=== PATIENT | female | born 1980 | race Two or more races ===

== ENCOUNTER 2020-02-19 15:36 | Outpatient (REF) | payer OTHER, SELFPAY | END 2020-02-19 15:37 | disposition home or self-care (01) | LOC: HO.LAB 15:36 | PROVIDERS: PCP Internal Medicine; Visit Provider Internal Medicine | DX: Z20.828 Contact with and (suspected) exposure to other viral communicable diseases (principal) | CPT/HCPCS: C9803; U0003 ==

== ENCOUNTER 2020-03-04 10:10 | Outpatient (REF) | payer OTHER, SELFPAY | END 2020-03-04 10:11 | disposition home or self-care (01) | LOC: HO.LAB 10:10 | PROVIDERS: Visit Provider Internal Medicine | DX: Z20.828 Contact with and (suspected) exposure to other viral communicable diseases (principal) | CPT/HCPCS: C9803; U0003 ==

== ENCOUNTER 2020-05-21 03:24 | Emergency (ER) | payer OTHER, SELFPAY ==
[2020-05-21 04:34] VITALS: BP 119/78; PULSE 69; RESP 18; TEMP 37.1; O2SAT 100; BMI 36.8
--- NOTE | 2020-05-21 05:11 | ED.DENTAL ---
HPI - Dental/Oral General Chief complaint: Dental/Oral Stated complaint: Dental Pain Time Seen by Provider: 05/21/20 05:07 Source: patient Mode of arrival: ambulatory Limitations: no limitations History of Present Illness HPI Narrative: Patient comes to emergency room complaining of dental pain in the right maxillary side. Patient states she has been prescribed amoxicillin and ibuprofen without relief. Patient states she has an appointment coming up with her dentist, however she could not tolerate the pain. Patient states her face looks more swollen now. Patient denies fever or chills MD Complaint: tooth pain Teeth map: 1. Onset (ago): day(s) Related Data Previous Rx's Medication Instructions Recorded ketorolac 10 mg PO TID PRN 5 Days tab 05/21/20 ketorolac 10 mg PO TID PRN 5 Days tab 05/21/20 Allergies Allergy/AdvReac Type Severity Reaction Status Date / Time Latex, Natural Rubber Allergy Unknown Verified 05/21/20 05:44 Review of Systems Review of Systems: Constitutional : No Weight loss, No Fever, No Chills, No Night Sweats, No Fatigue, No Malaise ENT/Mouth : No Hearing loss, No Ear Pain, No Nasal Congestion, No Sinus Pain, No Hoarseness, No sore throat, No Rhinorrhea, No Swallowing Difficulty, complaining of right maxillary pain and right facial swelling Eyes: No Eye Pain, No Swelling, No Redness, No Foreign Body, No Discharge, No Vision Changes Cardiovascular : No Chest Pain, No SOB, No Dyspnea on Exertion, No Orthopnea, No Edema, No Palpitations Respiratory : No Cough, No Sputum, No Wheezing, No Smoke Exposure, No Dyspnea Gastrointestinal : No Nausea, No Vomiting, No Diarrhea, No Constipation, No abdominal Pain, No Hematochezia, No Melena Genitourinary : no irregular bleeding, No Dysuria, No Urinary Frequency, No Hematuria, No Urinary Incontinence, No Urgency, No Flank Pain, No Urinary Flow Changes, No Hesitancy Musculoskeletal : No joint pain, No Myalgias, No Joint Swelling Skin : No Skin Lesions, No rash Neuro : No Weakness, No Numbness, No Paresthesias, No Loss of Consciousness, No Dizziness, No Headache Psych : No Anxiety/Panic, No Depression, No SI/HI/AH/VH, No Social Issues, Heme/Lymph: No Bruising, No Bleeding,No Lymphadenopathy Endocrine : No Polyuria, No Polydipsia, No Temperature Intolerance [facility] Past Medical History Medical History Asthma Social History Social History Advance Directives: No Physical Exam Vital Signs: Vital Signs: Last Vital Signs Temp 98.8 F 05/21/20 04:34 Pulse 69 05/21/20 04:34 Resp 18 05/21/20 04:34 BP 119/78 05/21/20 04:34 Pulse Ox 100 05/21/20 04:34 Body Mass Index 36.8 Appearance: Alert. Oriented X3. No acute distress. Eyes: Pupils equal, round and reactive to light. ENT: Pharynx normal. Patient has a an abscess in the anterior aspect of the 27th and 28th teeth, tender to palpation Neck: Normal inspection. Neck supple. No lymph nodes noted. No crepitus CVS: Normal heart rate and rhythm. Pulses normal. Normal S1 and S2 Respiratory: No respiratory distress. Breath sounds normal. No Wheezing. No rales Abdomen: Soft and nontender. No rigidity. No distention. good BS x4 Skin: Skin warm and dry. Normal skin color. Normal skin turgor. Extremities: No lower extremity edema. No lower extremity edema. No Lacerations. No Rash Neuro: Oriented X 3. No motor deficit. No sensory deficit. Moving all extermities. No slurred speech. Course Course Course Narrative: Patient states that she is taking amoxicillin 3 times a day from a previous prescription that she has, has been taking 200 mg of ibuprofen every 8-12 hours. Patient received a dental block, bupivacaine 3.6 mL were used. Patient had relief. Patient has an appointment with her dentist in 2 days. Patient received 1 dose of IM Toradol. Patient asked to discontinue taking ibuprofen. Discharge Plan Discharge Clinical Impression: Toothache, Dental abscess Patient Disposition: Home, Self-Care Instructions: Toothache (ED) Additional Instructions: Do not use ibuprofen when you are taking ketorolac. If you need more pain relief, please use Tylenol only. Please follow-up with your dentist. Please follow-up with your primary care physician tomorrow. If you have any worsening or new symptoms, please return to the emergency room or call 911 Prescriptions: New ketorolac 10 mg tablet 10 mg PO TID PRN (Reason: pain) 5 Days RF: 0 ketorolac 10 mg tablet 10 mg PO TID PRN (Reason: pain) 5 Days RF: 9
[2020-05-21] MEDS: Ketorolac Tromethamine 60 MG/2 ML VIAL IM (06:04)
== END 2020-05-21 06:15 | disposition home or self-care (01) ==
PROVIDERS: Emergency Provider Emergency Medicine; PCP Internal Medicine
DX: K08.89 Other specified disorders of teeth and supporting structures (principal); K04.7 Periapical abscess without sinus; J45.909 Unspecified asthma, uncomplicated
CPT/HCPCS: 64400; 96372; 99283; 99284; J1885

== ENCOUNTER 2022-08-31 09:45 | Outpatient (AMB) | payer OTHER, SELFPAY ==
--- NOTE | 2022-08-31 10:35 | MHC.PC.OV ---
Vital Signs 08/31/22 10:44 Height 5 ft 4 in Weight 248 lb BMI 42.6 BP 112/80 Blood Pressure Location Lt brachial Position Sitting Pulse 76 Pulse Source Pulse Oximeter Pulse Oximetry (%) 95 Oxygen Delivery Method Room Air Intake Visit Reasons: New patient-Requesting physical Intake Note: Pt is here today as a transfer Patient from Dr. Ellis/[facility] Allergies Latex, Natural Rubber Allergy (Verified 05/19/23 22:58) Unknown Medication List - Last Reconciled 08/31/22 by Dorinda Beauchamp MD No Known Home Meds Tobacco use date assessed: 08/31/22 HPI New patient-Requesting physical HPI Details 41-year-old lady here today to establish care with a new PCP, transfer from Dr. Ellis, and for physical exam. She has history of chronic gastroesophageal reflux disease, hypertension, history of vitamin-D deficiency, B12 deficiency, history of bariatric surgery in 2016, and bronchial asthma. She however is not on any medications at present time. Has been having irregular menstrual cycle, last menstrual period was in January 2022. Review of last blood work in 2017 showed presence of elevated bilirubin and low vitamin-D level. [facility] Medical History Heartburn Irregular menstrual cycle Annual visit for general adult medical examination with abnormal findings Leukopenia Total bilirubin, elevated Vitamin D deficiency Asthma Surgical History H/O gastric sleeve Family History Father Diabetes mellitus Essential hypertension Maternal Grandmother Essential hypertension CVA (cerebral vascular accident) Maternal Grandfather Essential hypertension Cardiovascular disease Maternal Uncle Diabetes mellitus Social History Housing: Apartment Patient Tobacco Use Status: Former Tobacco user e-Cigarette/Vaping Use: Never Used service: No Current occupational status: employed Cognitive needs: No Hearing needs: No Vision needs: No Questionnaire PHQ-9 Over the last 2 weeks, how often have you been bothered by any of the following problems? 1. Little interest or pleasure in doing things: not at all 2. Feeling down, depressed, or hopeless: not at all 3. Trouble falling or staying asleep, or sleeping too much: several days 4. Feeling tired or having little energy: several days 5. Poor appetite or overeating: not at all 6. Feeling bad about yourself - or that you are a failure or have let yourself or your family down: not at all 7. Trouble concentrating on things, such as reading the newspaper or watching television: not at all 8. Moving or speaking so slowly that other people could have noticed. Or the opposite - being so fidgety or restless that you have been moving around a lot more than usual: not at all 9. Thoughts that you would be better off or of hurting yourself in some way: not at all Total score: 2 Depression Screening Interpretation: Negative 71804 - PHQ-9 Billing: Yes Source: Developed by Drs. Antoni Kim, Chelly Harmon, Armond Morales and colleagues, with an educational loyda from [employer]. Thrive Questionnaire Date Thrive assessed: 08/31/22 I am a: Patient What is your living situation today?: I have a steady place to live Within the past 12 months, did the food you bought not last and you didn't have the money to get more?: Sometimes True Within the past 12 months, did you worry whether your food would run out before you got money to buy more?: Sometimes True Do you have trouble paying for medicines?: Yes Do you have trouble getting transportation to medical appointments?: No Do you have trouble paying your heating and electricity bill?: No Do you have trouble taking care of your child, family member or friend?: No Do you have trouble with day-to-day activities such as bathing, preparing meals, shopping, managing finances, etc.?: No Are you currently unemployed and looking for a job?: No Are you interested in more education?: Yes AUDIT C Alcohol Use Questionnaire (AUDIT-C) 1. How often do you have a drink containing alcohol?: Monthly or less 2. How many drinks containing alcohol do you have on a typical day when you are drinking?: 1 or 2 3. How often do you have six or more drinks on one occasion?: Never Total Score: 1 MIKE-7 AMB Questionnaire MIKE-7 Date MIKE - 7 assessed: 08/31/22 Feeling nervous, anxious, or on edge: 0 = Not at all Not being able to stop or control worryin = Not at all Worrying too much about different things: 0 = Not at all Trouble relaxin = Not at all Being so restless that it is hard to sit still: 0 = Not at all Becoming easily annoyed or irritable: 0 = Not at all Feeling afraid as if something awful might happen: 0 = Not at all Total MIKE-7 score (0-4 normal; 5-9 mild; 10-14 moderate; 15-21 severe): 0 Source: Developed by Drs. Antoni Kim, Chelly Harmon, Armond Morales and colleagues, with an educational loyda from [employer]. MIKE-7 Assessment Billing MIKE-7 Assessment Tool: MIKE-7 Assessment 63809 Review of Systems Const Denies body aches, Denies fatigue, Denies fever(s), Denies headache(s) and Denies weakness Eyes Denies change in vision ENT Denies dizziness, Denies headache(s), Denies nasal congestion and Denies nasal discharge Card Denies chest pain, Denies lightheadedness, Denies palpitations and Denies dyspnea Resp Denies chest congestion, Denies cough, Denies dyspnea and Denies wheezing GI Denies abdominal pain, Denies change in bowel habits, Reports heartburn (Recurrent), Denies nausea and Denies vomiting Reports abnormal menses (Irregular menstrual cycle), Denies hematuria, Denies urinary frequency, Denies dysuria and Denies urinary urgency Musc Reports no additional complaints Skin/Breast Denies breast pain, Denies breast mass, Denies lesions and Denies rash Neuro Denies dizziness, Denies headache(s) and Denies weakness Psych Reports no additional complaints Endo Denies fatigue, Denies polydipsia, Denies polyuria and Denies palpitations Eric/Lymph Denies easy bruising Aller/Immun Denies seasonal rhinorrhea and Denies wheezing Physical exam (Primary Care) Vital Signs: Last Vital Signs Pulse 76 08/31/22 10:44 BP 112/80 08/31/22 10:44 Pulse Ox 95 08/31/22 10:44 Oxygen Delivery Method Room Air 08/31/22 10:44 BMI result Body Mass Index 42.6 Tobacco/Smoking Status: Tobacco use Status Tobacco use date assessed 08/31/22 08/31/22 10:43 Patient Tobacco Use Status Former Tobacco user 08/31/22 10:43 e-Cigarette/Vaping Use Never Used 08/31/22 10:43 PHQ-9: PHQ-9 Score PHQ-9: Total score 2 10/24/23 18:56 Depression Screening Interpretation: Negative Thrive Assessment: Date of Thrive Assessment Date Thrive assessed 08/31/22 08/31/22 10:53 Const General: no acute distress and alert Orientation/consciousness: patient oriented x3 HENMT Head: Yes normocephalic Ears: external ears normal, TM's normal bilaterally and EAC's normal General nose exam: Normal external nose present and No nasal discharge present Face and sinus: Yes face symmetric Mouth: Normal oral and palatal mucosa present, oropharynx normal and moist mucous membranes Eyes General: appearance normal, both eyes and all related structures Neck Neck: Yes full ROM, Yes no lymphadenopathy and Yes supple Thyroid: Thyroid normal Chest Breast/axilla palpation: normal palpation of the breasts Resp Effort & Inspection: normal respiratory effort and able to speak in complete sentences Auscultation: clear to auscultation bilaterally Cardio Rate: regular rate Rhythm: regular rhythm Heart sounds: S1 normal heart sound present and S2 normal heart sound present GI Palpation (GI): Soft to palpation, nontender, no guarding and no masses Auscultation: normal bowel sounds General: Yes no CVA tenderness Back/Spine/Pelvis Back: no CVA tenderness and No back tenderness Skin General skin exam: no rashes or lesions noted Neuro General: patient oriented x3, gait normal, moves all extremities, Normal light touch and pain sensation, no focal motor deficits and CN's II-XI intact bilaterally Cognition (Neuro): normal cognition Gait exam (Neuro): Normal gait present Motor exam (neuro): 5/5 motor strength present throughout Extrem General: Yes normal to inspection, Yes full ROM, Yes no joint enlargement, Yes no pedal edema and Yes normal gait Psych Appearance: grossly normal and well kempt Mental Status: mental status grossly normal Speech and movement: Normal speech and movement present Affect: normal affect Attitude: cooperative Thought process: Normal thought process present Thought content: Normal thought content present Results AMB Test Urine AMB Test Urine Negative Last Edit by Maricarmen Bullock CMA on 08/31/22 11:04 Results Reviewed Results Reviewed: Laboratory Last Values [facility] Negative 08/31/22 11:03 Assessment and Plan Assessment & Plan (1) Annual visit for general adult medical examination with abnormal findings: Code(s): Z00.01 - Encounter for general adult medical examination with abnormal findings Plan: Will check appropriate labs. Recommended dental visit every 6 months and regular eye exams, at least every 2 years. Take adequate calcium in diet and vitamin-D 3 at 2000 IU per cap once a day, in addition to weight-bearing exercises to help maintain good muscle tone and weight control. Instructed to do self-breast exam, and recommended to get yearly mammogram, screening mammogram ordered. Patient does not want to get any vaccines (2) Leukopenia: Code(s): D72.819 - Decreased white blood cell count, unspecified Plan: CBC with differential ordered (3) Total bilirubin, elevated: Code(s): R17 - Unspecified jaundice Plan: Comprehensive metabolic panel ordered (4) Vitamin D deficiency: Code(s): E55.9 - Vitamin D deficiency, unspecified Plan: Will check vitamin-D level (5) Asthma: Code(s): J45.909 - Unspecified asthma, uncomplicated Plan: Declined pneumonia vaccination, continue with albuterol inhaler as needed for episodes of bronchospasm and wheezing. (6) Irregular menstrual cycle: Code(s): N92.6 - Irregular menstruation, unspecified Plan: Urine test came back negative, referred to [facility] [place] [facility] for further evaluation and management, ordered CBC, iron profile and TSH with reflex free T4 (7) Cervical cancer screening: Code(s): Z12.4 - Encounter for screening for malignant neoplasm of cervix Plan: Referral to [facility] [place] [facility] for her routine Pap and pelvic exam (8) Heartburn: Code(s): R12 - Heartburn Plan: Prescription sent for her famotidine 40 mg per tablet to take once a day at least an hour before eating, avoidance of triggers for heartburn, avoid caffeine acidic foods such as tomatoes and greasy foods as well as alcohol Orders: Orders Comprehensive [place]. Panel Fast 08/31/22 Z00.01 - Encounter for general adult medical examination with abnormal findings, D72.819 - Decreased white blood cell count, unspecified, R17 - Unspecified jaundice, E55.9 - Vitamin D deficiency, unspecified, J45.909 - Unspecified asthma, uncomplicated Complete Blood Count Auto Diff 08/31/22 Z00.01 - Encounter for general adult medical examination with abnormal findings, D72.819 - Decreased white blood cell count, unspecified, R17 - Unspecified jaundice, E55.9 - Vitamin D deficiency, unspecified, J45.909 - Unspecified asthma, uncomplicated Lipid Panel 08/31/22 Z00.01 - Encounter for general adult medical examination with abnormal findings, D72.819 - Decreased white blood cell count, unspecified, R17 - Unspecified jaundice, E55.9 - Vitamin D deficiency, unspecified, J45.909 - Unspecified asthma, uncomplicated IRON PROFILE 08/31/22 Z00.01 - Encounter for general adult medical examination with abnormal findings, D72.819 - Decreased white blood cell count, unspecified, R17 - Unspecified jaundice, E55.9 - Vitamin D deficiency, unspecified, J45.909 - Unspecified asthma, uncomplicated Vitamin D 25-OH Total 08/31/22 Z00.01 - Encounter for general adult medical examination with abnormal findings, D72.819 - Decreased white blood cell count, unspecified, R17 - Unspecified jaundice, E55.9 - Vitamin D deficiency, unspecified, J45.909 - Unspecified asthma, uncomplicated AMB HCG Urine Test 08/31/22 Z32.02 - Encounter for test, result negative TSH reflex Free T4 08/31/22 N92.6 - Irregular menstruation, unspecified MM screening mammo BI 08/31/22 Z12.31 - Encounter for screening mammogram for malignant neoplasm of breast Referrals [employer] Referral N92.6 - Irregular menstruation, unspecified, Z12.4 - Encounter for screening for malignant neoplasm of cervix Medications: New famotidine 40 mg PO DAILY 30 tabs 4RF Coding Level of Care Code Est Pt Prev Care 40-64y(36676) Diagnoses Annual visit for general adult medical examination with abnormal findings Z00.01 Leukopenia D72.819 Total bilirubin, elevated R17 Vitamin D deficiency E55.9 Asthma J45.909 Irregular menstrual cycle N92.6 Cervical cancer screening Z12.4 Heartburn R12 Additional Codes MIKE-7 Assessment Billing - MIKE-7 Assessment Tool: MIKE-7 Assessment 09197 ([id number])
[2022-08-31 10:44] VITALS: BP 112/80; PULSE 76; O2SAT 95; BMI 42.6
== END 2022-08-31 11:20 | disposition home or self-care (01) ==
PROVIDERS: PCP Internal Medicine; Visit Provider Internal Medicine
DX: Z00.01 Encounter for general adult medical examination with abnormal findings (principal); D72.819 Decreased white blood cell count, unspecified; R17 Unspecified jaundice; E55.9 Vitamin D deficiency, unspecified; J45.909 Unspecified asthma, uncomplicated; N92.6 Irregular menstruation, unspecified; Z12.4 Encounter for screening for malignant neoplasm of cervix; R12 Heartburn
CPT/HCPCS: 99499

== ENCOUNTER 2022-08-31 11:21 | Outpatient (REF) | payer OTHER, SELFPAY ==
[2022-08-31 13:59] LABS: MANUAL DIFF FLAG NO
[2022-08-31 14:06] LABS: Basophils Percent Auto 0.3 % (0-2); Eosinophils Absolute Auto 0.1 X10*3/uL (0.0-0.4); Eosinophils Percent Auto 1.6 % (0-4); Hematocrit 40.9 % (37.0-47.0); Hemoglobin 13.5 g/dl (12.0-16.0); Imm Gran Abs Auto 0.01 X10*3/uL (0.00-0.03); Imm Gran Pct Auto 0.3 % (0.0-0.4); Lymphocytes Absolute Auto 0.4 X10*3/uL (1.2-4.9); Lymphocytes Percent Auto 9.7 % (20-40); Mean Corpuscular Hemoglobin 30.4 pg (27.0-33.0); Mean Corpuscular Volume 92.1 fL (80.0-98.0); Mean Platelet Volume 10.3 fL (9.4-12.3); Monocytes Absolute Auto 0.2 X10*3/uL (0.1-1.2); Monocytes Percent Auto 5.4 % (2-11); Neutrophils Absolute Auto 3.1 x10*3/uL (2.0-8.3); Neutrophils Percent Auto 82.7 % (45-73); Platelet Count 222 X10*3/uL (160-400); Red Blood Count 4.44 X10*6/uL (4.20-5.50); Red Cell Distribution Width 13.8 % (11.0-16.0); White Blood Count 3.7 X10*3/uL (4.8-10.8)
[2022-08-31 14:53] LABS: Alanine Aminotransferase 16 U/L (0-31); Albumin Level 4.3 g/dL (3.5-5.0); Alkaline Phosphatase 109 U/L (39-117); Anion Gap 13 (12-20); Aspartate Amino Transferase 16 U/L (5-31); Bilirubin Total 2.7 mg/dL (0.0-1.0); Blood Urea Nitrogen 13 mg/dL (9-16); Calcium 8.9 mg/dL (8.4-10.2); Carbon Dioxide 21 mmol/L (22-29); Chloride 108 mmol/L (96-108); Cholesterol 138 mg/dL; Estimated Glomerular Filt Rate > 60; Glucose Fasting 93 mg/dL (60-99); HDL Cholesterol 58 mg/dL; Iron 111 mcg/dL (30-160); LDL Cholesterol Calculated 73 mg/dl; Percent Iron Saturation 36 % (15-50); Sodium 138 mmol/L (135-145); TSH reflex Free T4 1.14 uIU/mL (0.32-4.0); Total Iron Binding Capacity 312 mcg/dL (228-428); Total Protein 7.6 g/dL (6.5-8.0); Triglycerides 36 mg/dL; Unsaturated Iron Binding 201 ug/dL; Vitamin D 25-OH Total 16.7 ng/mL (>30)
== END 2022-08-31 11:22 | disposition home or self-care (01) ==
LOC: HO.HMGCLDS 11:21
PROVIDERS: PCP Internal Medicine; Visit Provider Internal Medicine
DX: Z00.01 Encounter for general adult medical examination with abnormal findings (principal); D72.819 Decreased white blood cell count, unspecified; E55.9 Vitamin D deficiency, unspecified; J45.909 Unspecified asthma, uncomplicated; R17 Unspecified jaundice; N92.6 Irregular menstruation, unspecified
CPT/HCPCS: 36415; 80053; 80061; 82306; 83540; 84443; 85025

== ENCOUNTER 2022-10-19 09:59 | Outpatient (REF) | payer OTHER, SELFPAY ==
--- NOTE | ~2022-10-19 | MM_ITS ---
EXAMINATION: MM SCREENING DIGITAL BREAST TOMOSYNTHESIS, BILATERAL CLINICAL INFORMATION: Screening. Asymptomatic. The lifetime risk of breast cancer based on the Tyrer-Cuzick Model is 11%. COMPARISON: Mammography: This study is compared with prior exams dating back to 2017. TECHNIQUE: Digital breast tomosynthesis is performed in both the craniocaudal and mediolateral oblique views along with computer-aided detection (CAD). Synthesized 2D images are generated from the tomosynthesis. FINDINGS: There are scattered areas of fibroglandular density (ACR BI-RADS breast composition Category b). There are no significant masses, abnormal calcifications, or other abnormalities. MM/MM tomosynthesis screening BI IMPRESSION: No mammographic evidence of malignancy. ASSESSMENT: BI-RADS BI-RADS 1 - Negative RECOMMENDATION: Routine annual mammography screening. 1 year F/U This examination should not preclude the clinical evaluation of a suspicious palpable abnormality. This patient's information was entered into a reminder system with a target due date for their next mammogram.
== END 2022-10-19 10:00 | disposition home or self-care (01) ==
LOC: HO.MAMMO 09:59
PROVIDERS: PCP Internal Medicine; Visit Provider Internal Medicine
DX: Z12.31 Encounter for screening mammogram for malignant neoplasm of breast (principal)
CPT/HCPCS: 77063; 77067

== ENCOUNTER → 2022-10-19 10:15 | Outpatient (BNV) | payer OTHER, SELFPAY | PROVIDERS: PCP Internal Medicine; Visit Provider Radiology Diagnostic Radiology | DX: Z12.31 Encounter for screening mammogram for malignant neoplasm of breast (principal) | CPT/HCPCS: 77063; 77067 ==

== ENCOUNTER 2022-10-26 09:14 | Outpatient (REF) | payer OTHER, SELFPAY ==
[2022-10-27 05:48] LABS: CT PCR NOT DETECTED (Not Detect.); NG PCR NOT DETECTED (Not Detect.)
[2022-10-27 14:15] LABS: BV Int Neg Control Negative (Negative); BV Int Pos Control Positive (Positive)
[2022-10-30 06:10] LABS: HPV mRNA E6/E7 rflx Not Detected (Not Detected)
== END 2022-10-26 09:15 | disposition home or self-care (01) ==
LOC: HO.LNP 09:14
PROVIDERS: PCP Internal Medicine; Visit Provider Advanced Practice Midwife
DX: Z01.419 Encounter for gynecological examination (general) (routine) without abnormal findings (principal); Z11.51 Encounter for screening for human papillomavirus (HPV); N92.6 Irregular menstruation, unspecified; E66.01 Morbid (severe) obesity due to excess calories; Z90.3 Acquired absence of stomach [part of]; Z87.42 Personal history of other diseases of the female genital tract
CPT/HCPCS: 0353U; 87480; 87510; 87624; 87660; 88142

== ENCOUNTER 2022-10-26 09:14 | Outpatient (AMB) | payer OTHER, SELFPAY ==
[2022-10-26 09:21] VITALS: BP 134/86; BMI 43.3
--- NOTE | 2022-10-26 09:21 | MHC.OFFVIS ---
Intake Vital Signs 10/26/22 09:21 Height 5 ft 4 in Weight 252 lb BMI 43.3 BP 134/86 Intake Visit Reasons: Irregular menses/PCP referral Intake Note: Irregular menses Gauge And Weigh Machine Operator Required: Yes Gauge And Weigh Machine Operator Language: Mohawk Information Interpreted: non-clinical & clinical Passenger Rate Clerk: Passenger Rate Clerk Present (Aidyn) Allergies Latex, Natural Rubber Allergy (Verified 10/26/22 09:24) Unknown Medication List - Last Reconciled 10/26/22 by Yuli Ramon CNM No Known Home Meds Is last menstrual period known: No (She states August) Post menopausal: No HPI Irregular menses/PCP referral HPI Details 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 She used to come to the midwifery office at the [facility] and she believes she has met this provider before. She has never had an abnormal Pap smear. She says she saw a new PCP at the [facility] send this referral. She had all her blood tests and she says she does not have any other medical problems the only issue is that she does get irregular periods and she did have a normal 1 in August that lasted about 5 days was heavy on the 2nd day but before that she had not had 1 for about 6 months with the last period before that being January of 2022. 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 She gradually gained the weight back. She would be reluctant to go back because not wanting to meet with negative judgment. 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 She is sexually active with a partner of about 5 years and not at all worried about STIs. She had a mammogram done last week. She is doing her best to try and eat very healthy and does not eat all of the a wonderful things on offer in the restaurant just the healthier things [facility] Medical History (Updated 10/26/22 @ 10:10 by Yuli Ramon CNM) Annual visit for general adult medical examination with abnormal findings Asthma Irregular menstrual cycle Leukopenia Total bilirubin, elevated Vitamin D deficiency Surgical History (Updated 10/26/22 @ 10:04 by Yuli Ramon CNM) H/O gastric sleeve Family History Father Diabetes mellitus Essential hypertension Maternal Grandmother Essential hypertension CVA (cerebral vascular accident) Maternal Grandfather Essential hypertension Cardiovascular disease Maternal Uncle Diabetes mellitus Social History Housing: Apartment Patient Tobacco Use Status: Former Tobacco user e-Cigarette/Vaping Use: Never Used service: No Current occupational status: employed Cognitive needs: No Hearing needs: No Vision needs: No Female Reproductive History Menstrual Age of Menarche: 12 Duration of menses: 3-5 days control method: none Total pregnancies: 0 Date of last pap smear: 03/14/15 (negative) Date of Mammogram: 10/19/22 Physical Exam Vital Signs: Last Vital Signs BP 134/86 10/26/22 09:21 BMI result Body Mass Index 43.3 Const General: healthy appearing, comfortable, no acute distress, well developed and alert Nutritional Appearance: average body habitus and obese Orientation/consciousness: patient oriented x3 Limitations: no limitations HEENT Head: Yes normocephalic Neck Neck: Yes normal visual inspection Chest Chest palpation & inspection: normal inspection of the chest Breast/axilla inspection: normal inspection of the breasts and normal inspection of the axillae Breast/axilla palpation: normal palpation of the breasts and normal palpation of the axillae Resp Effort & Inspection: normal respiratory effort GI Inspection: Yes normal to inspection, No Abdominal wall edema and No distended Palpation (GI): Soft to palpation and nontender Other: Speculum exam within normal limits hers vagina is pink and moist her cervix is nulliparous pink smooth shiny with very scant clear mucus. Uterus and cervix small midposition to anteverted nontender mobile adnexa within normal limits nontender. fair- good - tone with Kegel. General: Yes bladder normal to palpation External Female Exam: normal external appearance and normal appearance of the urethra Speculum Exam - Vagina: normal appearance of the vagina, normal palpation and normal vaginal discharge Speculum Exam - Cervix: normal appearance of the cervix, normal palpation and nontender Bimanual exam- vagina & uterus: normal bimanual exam, normal palpation, uterine size normal, bladder normal to palpation, consistency normal, normal palpation, uterine mobility normal, uterine shape normal, No Cervical tenderness present, non-tender and no cervical motion tenderness Bimanual Exam- Adnexa, other: normal adnexae, no masses, normal and No adnexal tenderness Neuro General: patient oriented x3 Assessment & Plan Assessment & Plan (1) Irregular menstrual cycle: Code(s): N92.6 - Irregular menstruation, unspecified (2) Well woman exam with routine gynecological exam: Code(s): Z01.419 - Encounter for gynecological examination (general) (routine) without abnormal findings (3) Screening for malignant neoplasm of cervix: Code(s): Z12.4 - Encounter for screening for malignant neoplasm of cervix (4) Hx of amenorrhea: Code(s): Z87.42 - Personal history of other diseases of the female genital tract (5) H/O gastric sleeve: Code(s): Z90.3 - Acquired absence of stomach [part of] (6) Obesity, morbid, BMI 40.0-49.9: Code(s): E66.01 - Morbid (severe) obesity due to excess calories Plan -----Discussed in this visit the following: healthy balanced diet, regular and consistent exercise, getting recommended health screens, doing the best she can for her particular health concerns, kegel exercises, pap smear screening and followup recommendations, mammography screening and SBE, normal changes in cycles in her life stage--- .Discussed her pattern of abnormal bleeding and the usual evaluation for it. Discussed the importance of ruling out any abnormal cells in her endometrium that are contributing to this. Discussed the ways of evaluating it, including pelvic ultrasound if appropriate, and an endometrial biopsy if appropriate. Also discussed the common causes of abnormal bleeding, including cancerous or precancerous cells, endometrial hyperplasia, anovulatory cycles, fibroids, and other potential causes. Discussed evaluation methods ---and will start with pelvic ultrasound to rule out any other abnormalities, and any lab work if appropriate. Also discussed possible treatment to deal with the abnormal bleeding which may include medications, depending on age and other factors, that include control pills use of Provera or other medications, and Mirena IUDs. In certain cases there may be other treatment plans discussed as well. Discussed in her case the particularly the very real role of increased body mass with amenorrhea and the risks of of this to her health. Discussed that it is never good to go more than 3 months without a menstrual. And if this ever happens I would like her to call and we would prescribe a medication to bring on her.. Additionally discussed that depending on the findings of the ultrasound further testing might be necessary but also that 1 consideration might be use of a Mirena IU S to help manage periods of amenorrhea and at least ensure that there is no buildup of endometrial lining beating to hemorrhaging in the future or other difficulties. Also discusses this is method of control and also discussed options of control and also very much stress that with increasing AG each poses other wrist as well and that if she did get with this weight she would automatically be in the high risk category and would need to get all her care start to finish at [facility] and I would not recommend that she seek at this stage. She is thinking med everything and she is aware that as she loses weight her chance of getting may in fact go up even though as she gets older the risk of does diminish somewhat. She is going to be continuing in her weight loss efforts. At this time she is reluctant to consider re referral to the weight loss management program because of fear of negative judgment. I will see her after the ultrasound. Orders: Orders Bacterial Vaginosis Panel Today Z01.419 - Encounter for gynecological examination (general) (routine) without abnormal findings CT NG by PCR Today Z01.419 - Encounter for gynecological examination (general) (routine) without abnormal findings US pelvic and transvaginal Today N92.6 - Irregular menstruation, unspecified, Z01.419 - Encounter for gynecological examination (general) (routine) without abnormal findings, Z12.4 - Encounter for screening for malignant neoplasm of cervix, Z87.42 - Personal history of other diseases of the female genital tract Pap Smear Today Z01.419 - Encounter for gynecological examination (general) (routine) without abnormal findings Coding Level of Care Code New Pt Prev Care 40-64y(07658) Diagnoses Irregular menstrual cycle N92.6 Well woman exam with routine gynecological exam Z01.419 Screening for malignant neoplasm of cervix Z12.4 Hx of amenorrhea Z87.42 H/O gastric sleeve Z90.3 Obesity, morbid, BMI 40.0-49.9 E66.01
== END 2022-10-26 10:08 | disposition home or self-care (01) ==
LOC: HO.HWS 09:14
PROVIDERS: PCP Internal Medicine; Visit Provider Advanced Practice Midwife
DX: Z01.419 Encounter for gynecological examination (general) (routine) without abnormal findings (principal); N92.6 Irregular menstruation, unspecified; Z87.42 Personal history of other diseases of the female genital tract; Z90.3 Acquired absence of stomach [part of]; E66.01 Morbid (severe) obesity due to excess calories
CPT/HCPCS: 99386

== ENCOUNTER 2022-11-16 10:59 | Outpatient (REF) | payer OTHER, SELFPAY ==
--- NOTE | ~2022-11-16 | US_ITS ---
EXAMINATION: US PELVIS CLINICAL INFORMATION: Irregular menses, history of amenorrhea. Last menstrual period July or August, patient uncertain. COMPARISON: 09/15/2016. TECHNIQUE: Ultrasound of the pelvis is performed using both transabdominal and transvaginal transducers along with Doppler. Transvaginal imaging is performed due to inadequate visualization transabdominally. FINDINGS: The uterus is heterogeneous and measures 7.6 x 3.0 x 3.5 cm and is anteverted. Endometrial thickness is 0.24 cm. Small amount of fluid within the endometrial cavity. 0.3 x 0.4 x 0.6 cm echogenic focus may possibly represent an endometrial polyp. No significant free fluid. Bilateral ovaries are unremarkable. Right ovary measures 2.3 x 1.1 x 1.5 cm, volume 2.0 mL. Left ovary measures 2.1 x 1.2 x 1.4 cm, volume 1.9 mL. US/US pelvic and transvaginal IMPRESSION: 1. Possible 0.6 cm endometrial polyp. Small amount of fluid within the endometrial cavity. Gynecologic consultation and possible biopsy recommended. Recommend followup ultrasound in 6-8 weeks. 2. Unremarkable bilateral ovaries. Previously identified complex right ovarian cyst is not visualized.
== END 2022-11-16 11:00 | disposition home or self-care (01) ==
LOC: HO.US 10:59
PROVIDERS: PCP Internal Medicine; Visit Provider Advanced Practice Midwife
DX: N92.6 Irregular menstruation, unspecified (principal); Z87.42 Personal history of other diseases of the female genital tract
CPT/HCPCS: 76830; 76856

== ENCOUNTER 2023-01-12 11:32 | Outpatient (REF) | payer OTHER, SELFPAY ==
--- NOTE | ~2023-01-12 | US_ITS ---
EXAMINATION: US PELVIS CLINICAL INFORMATION: Encounter for screening for malignant neoplasm of the cervix. Last menstrual period August 2022. COMPARISON: 11/17/2022. TECHNIQUE: Ultrasound of the pelvis is performed using both transabdominal and transvaginal transducers along with Doppler. Transvaginal imaging is performed due to inadequate visualization transabdominally. FINDINGS: The uterus is anteverted, heterogeneous and measures 6.6 x 3.0 x 4.2 cm. Endometrial thickness is 0.3 cm. 0.4 x 0.2 x 0.4 cm echogenic lesion within the endometrium may possibly represent an endometrial polyp and previously measured 0.3 x 0.4 x 0.6 cm. No significant free fluid. Bilateral ovaries were seen only on transvaginal ultrasound images and visualization was limited due to bowel gas. Right ovary measures 1.5 x 1.2 x 0.9 cm. Left ovary measures 1.2 x 1.3 x 1.5 cm. US/US pelvic and transvaginal IMPRESSION: 1. Redemonstration of 0.4 cm possible endometrial polyp. Followup ultrasound could be obtained in 6-12 weeks. Recommend gynecologic consultation and possible biopsy. 2. Limited visualization of bilateral ovaries. 3. Endometrial thickness of 0.3 cm.
== END 2023-01-12 11:33 | disposition home or self-care (01) ==
LOC: HO.US 11:32
PROVIDERS: PCP Internal Medicine; Visit Provider Advanced Practice Midwife
DX: N92.6 Irregular menstruation, unspecified (principal); Z87.42 Personal history of other diseases of the female genital tract
CPT/HCPCS: 76830; 76856

== ENCOUNTER 2023-02-02 14:28 | Outpatient (AMB) | payer OTHER, SELFPAY ==
[2023-02-02 14:30] VITALS: BP 142/76; BMI 44.3
--- NOTE | 2023-02-02 14:30 | A.OFFVIS_ITS ---
Intake Vital Signs 02/02/23 14:30 Height 5 ft 4 in Weight 258 lb BMI 44.3 BP 142/76 H Intake Visit Reasons: US Follow up Intake Note: Patient is anxious because ultrasound was repeated and she doesn't know why it was repeated. Phone Operator Required: Yes Phone Operator Language: Telugu Allergies Latex, Natural Rubber Allergy (Verified 02/02/23 14:36) Unknown Medication List - Last Reconciled 02/02/23 by Yuli Ramon CNM No Known Home Meds Is last menstrual period known: Yes Last menstrual period: 09/01/22 Post menopausal: No HPI US Follow up HPI Details Patient is here to review ultrasounds that were done to evaluate patient's endometrial lining as she was having irregular periods. COUNT INCLUDES THE [facility] Medical History Irregular menstrual cycle Annual visit for general adult medical examination with abnormal findings Leukopenia Total bilirubin, elevated Vitamin D deficiency Asthma Surgical History H/O gastric sleeve Family History Father Diabetes mellitus Essential hypertension Maternal Grandmother Essential hypertension CVA (cerebral vascular accident) Maternal Grandfather Essential hypertension Cardiovascular disease Maternal Uncle Diabetes mellitus Social History Housing: Apartment Patient Tobacco Use Status: Former Tobacco user e-Cigarette/Vaping Use: Never Used service: No Current occupational status: employed Cognitive needs: No Hearing needs: No Vision needs: No Female Reproductive History Menstrual Age of Menarche: 12 Date of last menstrual period: 09/01/22 control method: none Date of last pap smear: 10/27/22 (negative) Physical Exam Vital Signs: Last Vital Signs BP 142/76 H 02/02/23 14:30 BMI result Body Mass Index 44.3 Results Reviewed Results Reviewed: Patient: Chasity King MR#: [id number] : 1980 Acct:[id number] Age/Sex: 42 / F ADM Date: 11/16/22 Loc: HO.US Attending Dr: Yuli Ramon CNM Ordering Physician: Yuli Ramon CNM Date of Service: 11/16/22 Procedure(s): US pelvic and transvaginal Accession Number(s): [id number] cc: Yuli Ramon CNM~ EXAMINATION: US PELVIS CLINICAL INFORMATION: Irregular menses, history of amenorrhea. Last menstrual period July or August, patient uncertain. COMPARISON: 09/15/2016. TECHNIQUE: Ultrasound of the pelvis is performed using both transabdominal and transvaginal transducers along with Doppler. Transvaginal imaging is performed due to inadequate visualization transabdominally. FINDINGS: The uterus is heterogeneous and measures 7.6 x 3.0 x 3.5 cm and is anteverted. Endometrial thickness is 0.24 cm. Small amount of fluid within the endometrial cavity. 0.3 x 0.4 x 0.6 cm echogenic focus may possibly represent an endometrial polyp. No significant free fluid. Bilateral ovaries are unremarkable. Right ovary measures 2.3 x 1.1 x 1.5 cm, volume 2.0 mL. Left ovary measures 2.1 x 1.2 x 1.4 cm, volume 1.9 mL. US/US pelvic and transvaginal IMPRESSION: 1. Possible 0.6 cm endometrial polyp. Small amount of fluid within the endometrial cavity. Gynecologic consultation and possible biopsy recommended. Recommend followup ultrasound in 6-8 weeks. 2. Unremarkable bilateral ovaries. Previously identified complex right ovarian cyst is not visualized. 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 Last menstrual period August 2022. COMPARISON: 11/17/2022. TECHNIQUE: Ultrasound of the pelvis is performed using both transabdominal and transvaginal transducers along with Doppler. Transvaginal imaging is performed due to inadequate visualization transabdominally. FINDINGS: The uterus is anteverted, heterogeneous and measures 6.6 x 3.0 x 4.2 cm. Endometrial thickness is 0.3 cm. 0.4 x 0.2 x 0.4 cm echogenic lesion within the endometrium may possibly represent an endometrial polyp and previously measured 0.3 x 0.4 x 0.6 cm. No significant free fluid. Bilateral ovaries were seen only on transvaginal ultrasound images and visualization was limited due to bowel gas. Right ovary measures 1.5 x 1.2 x 0.9 cm. Left ovary measures 1.2 x 1.3 x 1.5 cm. US/US pelvic and transvaginal IMPRESSION: 1. Redemonstration of 0.4 cm possible endometrial polyp. Followup ultrasound could be obtained in 6-12 weeks. Recommend gynecologic consultation and possible biopsy. 2. Limited visualization of bilateral ovaries. 3. Endometrial thickness of 0.3 cm. Dictated By: Toyin Celeste MD Signed By: <Electronically signed by Toyin Celeste MD in OV> 01/13/23 1518 DD/ 1157 Assessment & Plan Assessment & Plan (1) Obesity, morbid, BMI 40.0-49.9: Code(s): E66.01 - Morbid (severe) obesity due to excess calories (2) Hx of amenorrhea: Code(s): Z87.42 - Personal history of other diseases of the female genital tract (3) Irregular menstrual cycle: Code(s): N92.6 - Irregular menstruation, unspecified (4) Endometrial polyp: Code(s): N84.0 - Polyp of corpus uteri Plan I reviewed both ultrasounds with her the plan had been for her to be seen after the 1st ultrasound and have the discussion as to why she needed to have the 2nd ultrasound done in addition there were other issues to discuss including her irregular periods and follow-up for that for some reason that appointment did not occur her. She tells me that she did not realize it was important and I explained to her that that was the intention to have that visit to explain the need with the 2nd ultrasound in any case now the next step needs to be for her to have a visit with Dr. Downing to review the probable need for endometrial biopsy but because of the polyp she will probably need a hysteroscopy in order to fully evaluate it. She is not contraceptive thing and is open to but she is not trying and thinks it is not her time right now. I recommend she use condoms from this point forward so as not to complicate the picture with an unplanned while she is getting the evaluation for this. In addition I reviewed her Pap smear which was negative and normal and the testing for infection which was negative. She has not had a period since September 01 so were it not for the endometrial polyp she would need an endometrial biopsy in any case and a plan made for her amenorrhea I discussed with her that possibly after this she may need to have something to help bring on a period, And a discussion may take place of a long-term solution as well, which may include a Mirena. Coding Level of Care Code Est Pt Level 3 (98612) Diagnoses Obesity, morbid, BMI 40.0-49.9 E66.01 Hx of amenorrhea Z87.42 Irregular menstrual cycle N92.6 Endometrial polyp N84.0
== END 2023-02-02 15:01 | disposition home or self-care (01) ==
PROVIDERS: PCP Internal Medicine; Visit Provider Advanced Practice Midwife
DX: E66.01 Morbid (severe) obesity due to excess calories (principal); Z87.42 Personal history of other diseases of the female genital tract; N92.6 Irregular menstruation, unspecified; N84.0 Polyp of corpus uteri
CPT/HCPCS: 99213

== ENCOUNTER → 2023-02-02 14:28 | Outpatient (BNVA) | payer OTHER, SELFPAY | PROVIDERS: PCP Internal Medicine; Visit Provider Advanced Practice Midwife | DX: N92.6 Irregular menstruation, unspecified (principal); N84.0 Polyp of corpus uteri; E66.01 Morbid (severe) obesity due to excess calories; Z87.42 Personal history of other diseases of the female genital tract; Z68.41 Body mass index [BMI] 40.0-44.9, adult | CPT/HCPCS: 99212 ==

== ENCOUNTER 2023-04-05 07:18 | Outpatient (AMB) | payer MEDICAID, SELFPAY ==
--- NOTE | 2023-04-05 08:04 | MHC.OFFVIS ---
Intake Intake Visit Reasons: Hysteroscopy/BX Consult/Per Yuli Deaf Interpreter Required: Yes Deaf Interpreter Name: Deaf Interpreter Danielle# [id number] Air Brake Mechanic: Air Brake Mechanic Present Allergies Latex, Natural Rubber Allergy (Verified 02/02/23 14:36) Unknown Is last menstrual period known: Yes Last menstrual period: 01/25/20 Post menopausal: No Patient : No Do you need a note to return to daycare/school/sports/work: Yes (for surgery on wednesday) HPI HPI Comments History of Present Illness Details Presenting referred from Yuli Ramon CNM regarding abnormal pelvic ultrasound . The patient is having irregular menstrual cycles associated for the last few months. Pelvic ultrasound showed the following: The uterus is anteverted, heterogeneous and measures 6.6 x 3.0 x 4.2 cm. Endometrial thickness is 0.3 cm. 0.4 x 0.2 x 0.4 cm echogenic lesion within the endometrium may possibly represent an endometrial polyp and previously measured 0.3 x 0.4 x 0.6 cm. No significant free fluid. Bilateral ovaries were seen only on transvaginal ultrasound images and visualization was limited due to bowel gas. Right ovary measures 1.5 x 1.2 x 0.9 cm. Left ovary measures 1.2 x 1.3 x 1.5 cm Last co testing was in 11/18 was negative Last mammogram was in 10/18 was BI-RADS 1 [facility] Medical History Irregular menstrual cycle Annual visit for general adult medical examination with abnormal findings Leukopenia Total bilirubin, elevated Vitamin D deficiency Asthma Surgical History H/O gastric sleeve Family History Father Diabetes mellitus Essential hypertension Maternal Grandmother Essential hypertension CVA (cerebral vascular accident) Maternal Grandfather Essential hypertension Cardiovascular disease Maternal Uncle Diabetes mellitus Social History Housing: Apartment Patient Tobacco Use Status: Former Tobacco user e-Cigarette/Vaping Use: Never Used service: No Current occupational status: employed Cognitive needs: No Hearing needs: No Vision needs: No Female Reproductive History Menstrual Age of Menarche: 12 Date of last menstrual period: 01/25/20 Total pregnancies: 2 Full term: 2 Review of Systems Card Reports as per HPI and Reports no additional complaints Resp Reports as per HPI and Reports no additional complaints GI Reports as per HPI and Reports no additional complaints Reports as per HPI Physical Exam Const General: cooperative, healthy appearing and comfortable Chest Chest palpation & inspection: normal inspection of the chest and normal palpation of entire chest wall Breast/axilla inspection: normal inspection of the breasts and normal inspection of the axillae Breast/axilla palpation: normal palpation of the breasts, normal palpation of the axillae and no axillary lymphadenopathy Resp Effort & Inspection: normal respiratory effort Auscultation: clear to auscultation bilaterally Percussion: percussion normal Cardio Palpation: normal PMI Rate: regular rate Rhythm: regular rhythm Heart sounds: no murmurs and no rubs Peripheral pulses: Peripheral pulses 2+ throughout GI Inspection: Yes normal to inspection Palpation (GI): Soft to palpation, nontender, no guarding, not rigid and No hepatosplenomegaly present Percussion: Yes normal to percussion Auscultation: normal bowel sounds Rectal Exam - Female: deferred Assessment & Plan Assessment & Plan (1) Abnormal uterine bleeding: Code(s): N93.9 - Abnormal uterine and vaginal bleeding, unspecified Plan: Co testing done, GC and chlamydia taken CBC, TSH, HCG, and pelvic ultrasound ordered. Discussed with the patient the different causes of abnormal bleeding including thyroid disorders, uterine and ovarian pathology, endometrial hyperplasia, carcinoma and other potential causes. Discussed with the patient the work up including CBC (to r/o anemia), TSH, pelvic Ultrasound (recently done), endometrial sampling to r/o endometrial pathology. All questions answered and the patient verbalized understanding. All communication was via phone certified flight dynamicist Danielle# [id number] (2) Endometrial polyp: Code(s): N84.0 - Polyp of corpus uteri Plan: Discussed with the patient the finding on pelvic ultrasound showing endometrial polyp. Recommended hysteroscopy D&C possible polypectomy/myomectomy. Discussed with the patient the procedure , all benefits and risks including but not limited to inability to complete the procedure , bleeding, infection, possible need for blood transfusion with all its risk ( HIV,syphilis, Hepatitis, anaphylaxis shock, others..), injury to bladder, rectum, possible need for laparoscopy/laparotomy or hysterectomy. The patient verbalized understanding and signed the consent. Instructions given the patient to schedule a 2 week postoperative appointment Orders: Orders Complete Blood Count no Diff Today N93.9 - Abnormal uterine and vaginal bleeding, unspecified TSH reflex Free T4 Today N93.9 - Abnormal uterine and vaginal bleeding, unspecified Prolactin Today N93.9 - Abnormal uterine and vaginal bleeding, unspecified HCG Quantitative Today N93.9 - Abnormal uterine and vaginal bleeding, unspecified Coding Level of Care Code Est Pt Level 3 (68339) Diagnoses Abnormal uterine bleeding N93.9 Endometrial polyp N84.0
== END 2023-04-05 07:47 | disposition home or self-care (01) ==
LOC: HO.HWS 07:19
PROVIDERS: PCP Internal Medicine; Visit Provider Obstetrics & Gynecology
DX: N93.9 Abnormal uterine and vaginal bleeding, unspecified (principal); N84.0 Polyp of corpus uteri
CPT/HCPCS: 99213

== ENCOUNTER 2023-04-05 07:18 | Outpatient (REF) | payer MEDICAID, SELFPAY ==
[2023-04-07 00:58] LABS: Prolactin 13.7 ng/mL
== END 2023-04-05 07:19 | disposition home or self-care (01) ==
LOC: HO.LAB 07:18
PROVIDERS: PCP Internal Medicine; Visit Provider Obstetrics & Gynecology
DX: N93.9 Abnormal uterine and vaginal bleeding, unspecified (principal); N84.0 Polyp of corpus uteri
CPT/HCPCS: 36415; 84146; 84443; 84702; 85027; 99212

== ENCOUNTER 2023-04-30 06:43 | Day surgery (SDC) | payer OTHER, SELFPAY ==
--- NOTE | 2023-04-29 10:28 | HO.ANESPROP2 ---
Documented by User: Maura Dukes NP 04/29/23 10:28 HPI - Anesthesia Eval Consult details Narrative: 42yo F for Dilation and Curettage Hysteroscopy possible myometomy/polypectomy PMFSH Active Problems Active Problems: All Active Problems (Updated 04/05/23 @ 08:20 by Aj Downing MD) Abnormal uterine bleeding (Acute) Endometrial polyp (Acute) Obesity, morbid, BMI 40.0-49.9 (Acute) H/O gastric sleeve (Acute) Hx of amenorrhea (Acute) Screening for malignant neoplasm of cervix (Acute) Well woman exam with routine gynecological exam (Acute) Irregular menstrual cycle (Acute) Annual visit for general adult medical examination with abnormal findings (Acute) Leukopenia (Acute) Total bilirubin, elevated (Acute) Vitamin D deficiency (Acute) Asthma (Acute) Past Medical History Medical History Irregular menstrual cycle Annual visit for general adult medical examination with abnormal findings Leukopenia Total bilirubin, elevated Vitamin D deficiency Asthma Family History Family History Father Diabetes mellitus Essential hypertension Maternal Grandmother Essential hypertension CVA (cerebral vascular accident) Maternal Grandfather Essential hypertension Cardiovascular disease Maternal Uncle Diabetes mellitus Surgical History Surgical History H/O gastric sleeve Social History Social History Housing: Apartment Patient Tobacco Use Status: Former Tobacco user e-Cigarette/Vaping Use: Never Used Are you DNR?: No Advance Directives: No Advance Directives Information Provided: Yes Recently lost weight without trying: No Nutrition Risks: No Nutritional Risk Patient : No FDLMP: last mth service: No Current occupational status: employed Cognitive needs: No Hearing needs: No Vision needs: No Meds Allergies Allergy/AdvReac Type Severity Reaction Status Date / Time Latex, Natural Rubber Allergy Unknown Verified 02/02/23 14:36 Home Medications Medication Instructions Recorded Confirmed Last Taken Type No Known Home Meds 10/26/22 02/02/23 Unknown History Assessment and Plan Assessment Anesthesia Assessment: Chart Reviewed Documented by User: Oscar Zuleta MD 04/30/23 08:43 PMF Past Medical History Medical History Irregular menstrual cycle Annual visit for general adult medical examination with abnormal findings Leukopenia Total bilirubin, elevated Vitamin D deficiency Asthma Patient : No Family History Family History Father Diabetes mellitus Essential hypertension Maternal Grandmother Essential hypertension CVA (cerebral vascular accident) Maternal Grandfather Essential hypertension Cardiovascular disease Maternal Uncle Diabetes mellitus Family history of problems with anesthesia: No Surgical History Surgical History H/O gastric sleeve History of Problems with Anesthesia: No Social History Social History Housing: Apartment Patient Tobacco Use Status: Former Tobacco user e-Cigarette/Vaping Use: Never Used Are you DNR?: No Advance Directives: No Advance Directives Information Provided: Yes Recently lost weight without trying: No Nutrition Risks: No Nutritional Risk Patient : No FDLMP: last mth service: No Current occupational status: employed Cognitive needs: No Hearing needs: No Vision needs: No Meds Allergies Allergy/AdvReac Type Severity Reaction Status Date / Time Latex, Natural Rubber Allergy Unknown Verified 02/02/23 14:36 Home Medications Medication Instructions Recorded Confirmed Last Taken Type No Known Home Meds 10/26/22 02/02/23 Unknown History Exam Airway Mallampati Class: I TM Dist: >3cm Neck ROM: Full Heart: ok Lungs: ok Assessment and Plan Assessment Anesthesia Assessment: Anesthesia Plan Discussed Final Anesthetic Review Family History of Problems with Anesthesia: No History of Problems with Anesthesia: No NPO: Yes ASA Class: II Final Preanesthetic Review: No Changes in Pt Med Stat, Meds/Allgs Chart Reviewed, Consent Obtained/Reviewed and Anes Risks/Benef Reviewed Patient Risk: Low Procedure Risk: Low Anesthetic Plan Anesthetic Plan: GA and Agree w/ Assess. and Plan Disposition: Standard PACU
[2023-04-30 06:50] VITALS: BMI 45.5
[2023-04-30 06:57] VITALS: BP 120/80; PULSE 82; RESP 20; TEMP 36.1; O2SAT 98
[2023-04-30 06:57] LABS: UPreg QC Valid YES; Urine Pregnancy NEGATIVE (NEGATIVE)
[2023-04-30] MEDS: Lactated Ringers 1,000 ML 100 ML IVCONT (07:08)
--- NOTE | 2023-04-30 07:32 | MHC.SHP ---
Pre-Procedural Eval Section A - 24 Hr Update-Section A only Date of Service: 04/30/23 The patient is an INPATIENT: No Changes since office visit: No Cold of Flu in the past 2 weeks, No New Medical Problems, No Changes in Medication and No Patient answered all questions The patient has been examined within 24 hours of the surgical procedure. The History & Physical has been completed within 30 days and I have reviewed it.: Yes Section B - Complete if H&P > 30 days Chief Complaint: Abnormal uterine and vaginal bleeding, unspecified Allergies: Allergies Allergy/AdvReac Type Severity Reaction Status Date / Time Latex, Natural Rubber Allergy Unknown Verified 02/02/23 14:36 Plan Diagnosis/Plan: Unchanged I have reviewed the history and physical and performed a pertinent physical examination on my patient. No changes have occurred unless specified. Time Spent With Patient Time: Total time managing care of this patient today ____ minutes.
--- NOTE | 2023-04-30 08:53 | P.BOP_ITS ---
Brief Operative Note Date of Service: 04/30/23 Pre-op diagnosis: Abnormal uterine bleeding, endometrial polyp by ultrasound Post-op diagnosis: same (Endometrial polyp) Procedure: Hysteroscopy D&C, Polypectomy Surgeon: Aj Downing MD Anesthesia: GLMA Was an Calender Runner used for this Procedure?: No Estimated blood loss (mL): 0 Pathology: other (Endometrial Scrapping. Polyp) Condition: stable Disposition: PACU
--- NOTE | 2023-04-30 08:54 | P.OP_ITS ---
Operative Note Operative Note Date of Service: 04/30/23 Narrative: Preop Diagnosis: Abnormal uterine bleeding, Endometrial polyp by US Operation: Diagnostic Hysteroscopy, Dilataion & Curettage and polypectomy Post Op Diagnosis: Endometrial Polyp QBL: Minimal Anesthesia: GLMA Surgeon: Aj Downing MD In School Suspension Aide: None Complication: None Pathology: Endometrial Scrapings, Endometrial polyp Procedure: The patient was put in the dorsal lithotomy position, scrubbed, and draped in the usual manner. A sterile speculum was inserted in the patient's vagina. The anterior lip of the cervix was grasped with a single tooth tenaculum. The cervix was dilated up to 5 mm, then the scope was inserted in the patient's uterus. Inspection revealed endometrial polyp. The Myosure Reach device was used; it was introduced through the operative channel and polypectomy done with no complications. The scope was then taken out from the uterine cavity, sharp curettings was carried on with minimal to moderate amount of tissues retrieved. At the end of the procedure, all instruments were taken out of the patient uterine and vaginal cavity. The single tooth tenaculum was removed and homeostasis was assured using pressure,. The patient tolerated the procedure well and was transferred to the PACU in a stable condition.
[2023-04-30 09:04] VITALS: BP 129/83; PULSE 82; RESP 16; TEMP 36.2; O2SAT 92
[2023-04-30 09:09] VITALS: BP 113/91; PULSE 79; RESP 16; O2SAT 94
[2023-04-30] MEDS: Acetaminophen 325 MG TABLET 650 MG PO (09:10)
[2023-04-30 09:14] VITALS: BP 146/77; PULSE 75; RESP 16; O2SAT 95
[2023-04-30 09:19] VITALS: BP 118/74; PULSE 71; RESP 18; TEMP 36.3; O2SAT 96
[2023-04-30 09:34] VITALS: BP 115/76; PULSE 64; RESP 16; TEMP 36.3; O2SAT 97
== END 2023-04-30 10:05 | disposition home or self-care (01) ==
PROVIDERS: Nurse Practitioner; PCP Internal Medicine; Visit Provider Obstetrics & Gynecology
PROC: 0UDB8ZZ Extraction of Endometrium, Via Natural or Artificial Opening Endoscopic (ICD-10-PCS; CPT 58558; principal; 2023-04-30 08:30)
DX: N93.9 Abnormal uterine and vaginal bleeding, unspecified (principal); N84.0 Polyp of corpus uteri; N92.6 Irregular menstruation, unspecified; D72.819 Decreased white blood cell count, unspecified; E80.7 Disorder of bilirubin metabolism, unspecified; E55.9 Vitamin D deficiency, unspecified; J45.909 Unspecified asthma, uncomplicated; Z98.84 Bariatric surgery status; Z91.040 Latex allergy status; Z87.891 Personal history of nicotine dependence
CPT/HCPCS: 58558; 81025; 88305; J1885; J2405; J2704; J3010

== ENCOUNTER → 2023-04-30 06:43 | Outpatient (BNV) | payer OTHER, SELFPAY | PROVIDERS: PCP Internal Medicine; Visit Provider Obstetrics & Gynecology | DX: N84.0 Polyp of corpus uteri (principal); N93.9 Abnormal uterine and vaginal bleeding, unspecified | CPT/HCPCS: 58558 ==

== ENCOUNTER 2023-05-13 14:43 | Outpatient (AMB) | payer OTHER, SELFPAY ==
--- NOTE | 2023-05-13 14:47 | A.OFFVIS_ITS ---
Intake Vital Signs 05/13/23 14:49 Height 5 ft 4 in Weight 248 lb BMI 42.6 BP 122/76 Intake Visit Reasons: Post op Hyst D&C Allergies Latex, Natural Rubber Allergy (Verified 02/02/23 14:36) Unknown HPI HPI Comments History of Present Illness Details The patient is presenting post hysteroscopy D&C no complaints minimal vaginal bleeding no feverishness chills or abdominal pain. The pathology showed the following: A. Endometrium, curettage: Benign proliferative endometrium with focal ectatic stromal vessels and mild gland irregularity; no atypia or carcinoma. B. Endometrial polyp, resection: Fragments of benign endometrial polyp; no atypia or carcinoma, and fragments of benign smooth muscle (myometrium versus submucosal leiomyoma. The following workup for AUB was done.: H&H= 12.5/37.7 TSH, prolactin, hCGwere negative. Co testing was done in 11/18 was negative. Mammogram was BI-RADS 1 in 10/18. Pelvic ultrasound showed the following: The uterus is anteverted, heterogeneous and measures 6.6 x 3.0 x 4.2 cm. Endometrial thickness is 0.3 cm. 0.4 x 0.2 x 0.4 cm echogenic lesion with in the endometrium may possibly represent an endometrial polyp and previously measured 0.3 x 0.4 x 0.6 cm. No significant free fluid. Bilateral ovaries were seen only on transvaginal ultrasound images and visualization was limited due to bowel gas. Right ovary measures 1.5 x 1.2 x 0.9 cm. Left ovary measures 1.2 x 1.3 x 1.5 cm. [facility] Medical History Irregular menstrual cycle Annual visit for general adult medical examination with abnormal findings Leukopenia Total bilirubin, elevated Vitamin D deficiency Asthma Surgical History H/O gastric sleeve Family History Father Diabetes mellitus Essential hypertension Maternal Grandmother Essential hypertension CVA (cerebral vascular accident) Maternal Grandfather Essential hypertension Cardiovascular disease Maternal Uncle Diabetes mellitus Social History Housing: Apartment Patient Tobacco Use Status: Former Tobacco user e-Cigarette/Vaping Use: Never Used service: No Current occupational status: employed Cognitive needs: No Hearing needs: No Vision needs: No Female Reproductive History Menstrual Age of Menarche: 12 Review of Systems Const All systems reviewed & are unremarkable except as noted in HPI and below Reports as per HPI and Reports no additional complaints GI Reports no additional complaints Reports no additional complaints Physical Exam Vital Signs: Last Vital Signs BP 122/76 05/13/23 14:49 BMI result Body Mass Index 42.6 Assessment & Plan Assessment & Plan (1) Abnormal uterine bleeding: Code(s): N93.9 - Abnormal uterine and vaginal bleeding, unspecified Plan: Discussed with the patient the results of the work up done and options of treatment including but not limited to BCP's, cyclic Progesterone, Mirena IUD, endometrial ablation and hysterectomy. All pros, cons, risks and benefits of each option were discussed with the patient and the patient decided to go ahead with cyclic Prometrium, so a more detailed discussion re: Progesterone treatment including mechanism of action, benefits (regular menses, endometrial protection form unopposed estrogen and reduction in the risk of endometrial hyperplasia and/or cancer ...), risks (Thrombosis, mood changes, weight gain, breast soreness, ? increased breast ca, others). Instructions were given to use a back- up method for contraception since this is not a method control, take the medication 1 tablet daily starting day 15-24 and to schedule a 3 months follow-up appointment; patient verbalized understanding and agreed with the plan. (2) Endometrial polyp: Comment: Status post hysteroscopic polypectomy Code(s): N84.0 - Polyp of corpus uteri Plan: Discussed the patient the intraoperative finding, showing endometrial polyp and the pathology, the patient was reassured. All questions answered, the patient verbalized understanding Medications: New progesterone micronized (Prometrium) Take the pill 1 tablet a day cyclically every month from day 15-24 day 1 being the 1st day of next menstrual cycle 200 mg PO BEDTIME 30 caps 0RF 10 days Coding Level of Care Code Est Pt Level 3 (93792) Diagnoses Abnormal uterine bleeding N93.9 Endometrial polyp N84.0
[2023-05-13 14:49] VITALS: BP 122/76; BMI 42.6
== END 2023-05-13 14:59 | disposition home or self-care (01) ==
PROVIDERS: PCP Internal Medicine; Visit Provider Obstetrics & Gynecology
DX: N93.9 Abnormal uterine and vaginal bleeding, unspecified (principal); N84.0 Polyp of corpus uteri
CPT/HCPCS: 99213

== ENCOUNTER → 2023-05-13 14:43 | Outpatient (BNVA) | payer OTHER, SELFPAY | PROVIDERS: PCP Internal Medicine; Visit Provider Obstetrics & Gynecology | DX: N93.9 Abnormal uterine and vaginal bleeding, unspecified (principal); N84.0 Polyp of corpus uteri | CPT/HCPCS: 99212 ==

== ENCOUNTER 2023-05-19 22:42 | Emergency (ER) | payer OTHER, SELFPAY ==
[2023-05-19 22:58] VITALS: BP 132/78; PULSE 83; RESP 20; TEMP 36.6; O2SAT 98; BMI 45.5
[2023-05-20 00:23] LABS: IDNOW Serial# 9DB6401D; Influenza A Positive (Negative); Influenza B2 Negative (Negative)
[2023-05-20 00:26] LABS: IDNOW Serial# 6674DD1D; Strep A Nucleic Acid Negative (Negative)
[2023-05-20 00:28] LABS: COVID-19 Test Negative (Negative); IDNOW Serial# 58CA691E
--- NOTE | 2023-05-20 00:48 | ED.GENADULT ---
HPI - General Adult General Chief complaint: Upper Respiratory Symptoms Stated complaint: asthma, difficulty breathing Time Seen by Provider: 05/20/23 00:27 Source: patient Mode of arrival: ambulatory Limitations: no limitations History of Present Illness HPI narrative: 42 yold female with pmh asthma presents to the ED for coughing, shorntess of breath, bodyaches, and chills for the past 3 days. patient states testing twice for covid. Patient denies any leg swelling, calf pain, or pleurisy. patient states she ran out of her asthma meds. Related Data Previous Rx's Medication Instructions Recorded progesterone micronized 200 mg 200 mg PO BEDTIME 10 days #30 caps 05/13/23 capsule (Prometrium) albuterol sulfate 90 mcg/actuation 2 puff inhalation Q4-6H PRN 05/20/23 aerosol inhaler shortness of breath or wheezing #8.5 grams prednisone 20 mg tablet 40 mg (2 x 20 mg) PO DAILY 5 days 05/20/23 #10 tabs Allergies Allergy/AdvReac Type Severity Reaction Status Date / Time Latex, Natural Rubber Allergy Unknown Verified 05/19/23 22:58 Review of Systems Review of Systems: COughing, SOB, and obdyaches Yes all other systems are reviewed and are negative PMFSH Past Medical History Medical History Irregular menstrual cycle Annual visit for general adult medical examination with abnormal findings Leukopenia Total bilirubin, elevated Vitamin D deficiency Asthma Surgical History H/O gastric sleeve Family History Family History Father Diabetes mellitus Essential hypertension Maternal Grandmother Essential hypertension CVA (cerebral vascular accident) Maternal Grandfather Essential hypertension Cardiovascular disease Maternal Uncle Diabetes mellitus Social History Social History Housing: Apartment Patient Tobacco Use Status: Former Tobacco user e-Cigarette/Vaping Use: Never Used Advance Directives: No Advance Directives Information Provided: Yes service: No Current occupational status: employed Cognitive needs: No Hearing needs: No Vision needs: No Physical Exam ED Vital Signs: Vital Signs - 24 hr 05/19/23 22:58 Temperature 98 F Pulse Rate 83 Respiratory Rate 20 Blood Pressure 132/78 Pulse Oximetry 98 Oxygen Delivery Method Room Air BMI result Body Mass Index 45.5 Const General: cooperative, healthy appearing, comfortable, no acute distress, well developed, alert, awake and Physically active Orientation/consciousness: oriented to person, oriented to place, oriented to time and patient oriented x3 HENMT Head: Yes normal to inspection, Yes No palpable skull fracture present, Yes normocephalic and Yes atraumatic Eyes General: appearance normal, both eyes and all related structures Neck Neck: Yes normal visual inspection, Yes full ROM, Yes no lymphadenopathy, Yes no meningeal signs, Yes trachea midline, Yes supple, No anterior neck swelling and No tender Chest Chest palpation & inspection: normal inspection of the chest and normal palpation of entire chest wall Resp Effort & Inspection: normal respiratory effort and able to speak in complete sentences Auscultation: wheezes expiratory wheezes (mild) Cardio Jugular venous distension: no JVD Heart sounds: S1 normal heart sound present and S2 normal heart sound present GI Inspection: Yes normal to inspection and No abdominal wall ecchymosis Palpation (GI): Soft to palpation, not firm, nontender, no guarding and not rigid General: No CVA tenderness and Yes no CVA tenderness Back/Spine/Pelvis Back: no CVA tenderness, No CVA tenderness and No back tenderness Skin Other: Bilateral lower extremity negative for swelling, pitting edema, calf tenderness General skin exam: no rashes or lesions noted, elasticity normal and turgor normal Neuro General: oriented to person, oriented to place, oriented to time, patient oriented x3, gait normal, tone normal, moves all extremities, Normal light touch and pain sensation, no meningeal signs, no focal motor deficits, CN's II-XI intact bilaterally and normal sensation to monofilament Extrem General: Yes normal to inspection, Yes full ROM and Yes capillary refill normal Psych Appearance: grossly normal, well kempt and not disheveled Medications Administered Discontinued Medications Generic Name Dose Route Start Last Admin Trade Name Freq PRN Reason Stop Dose Admin Albuterol Sulfate 2.5 mg 05/20/23 01:05 05/20/23 01:07 Albuterol Sulfate (0.083%) 2.5 Mg/3 Ml Vial.Neb INHALE 05/20/23 01:06 2.5 mg ONCE ONE Administration Prednisone 60 mg 05/20/23 01:13 05/20/23 01:25 Prednisone 20 Mg Tablet PO 05/20/23 01:14 60 mg ONCE ONE Administration Medical Decision Making Medical Decision Making [facility] Narrative: 41-year-old female history of asthma presents to ED for URI symptoms. Patient positive for influenza. Lungs mild wheezing. Patient ran out of her asthma pump. Will discharge with asthma pump. Patient has symptoms for 3 days out of range for Tamiflu. Patient explained worrisome signs and informed to return to the ED if she has Differential Diagnosis Differential Diagnoses: The differential diagnosis associated with the presentation includes (Influenza, COVID, asthma exacerbation) Admission/Observation Consideration of admission/observation: Escalation of care including admission/observation considered Lab Data [facility] Lab Attestation statement: I reviewed the patient's lab results. Labs: Lab Results 05/19/23 Range/Units 23:52 COVID-19 (MAURICE) Negative (Negative) COVID-19 Clin Com See Note Influenza Type A (RICKIE) Positive A (Negative) Influenza Type B (RICKIE) Negative (Negative) Influenza A & B Note See Note S. pyogenes GrpA RICKIE Negative (Negative) External Record Review External record reviewed: Other (prior visits) Prescription Management I considered prescription management with: Other (albuterol steroid) Discharge Plan Discharge Clinical Impression: Asthma, Influenza Patient Disposition: Home, Self-Care Instructions: Asthma (ED), Influenza (ED) Additional Instructions: Return to the ED immediately for any chest pain, shortness of breath, weakness, dizziness, coughing up blood, calf pain, or any other concerning symptoms. Recommend follow-up with primary care Prescriptions: New prednisone 20 mg tablet 40 mg PO DAILY 5 Days Qty: 10 0RF albuterol sulfate 90 mcg/actuation HFA aerosol inhaler 2 puff inhalation Q4-6H PRN (Reason: shortness of breath or wheezing) Qty: 8.5 0RF No Action progesterone micronized [Prometrium] 200 mg capsule 200 mg PO BEDTIME 10 Days Qty: 30 0RF Rx Instructions: Take the pill 1 tablet a day cyclically every month from day 15-24 day 1 being the 1st day of next menstrual cycle Stand Alone Forms: Work/School Release Interventions: ED Discharge Assessment Last Done: 05/20/23 01:27 Discharge Date/Time: 05/20/23 01:27 Print Language: Armenian
[2023-05-20] MEDS: Albuterol Sulfate (0.083%) 2.5 MG/3 ML VIAL.NEB INHALE (01:07)
[2023-05-20 01:10] VITALS: PULSE 98; RESP 16; O2SAT 100
[2023-05-20] MEDS: predniSONE 20 MG TABLET 60 MG PO (01:25)
[2023-05-20 01:26] VITALS: BP 115/65; PULSE 78; RESP 17; TEMP 36.6; O2SAT 98
== END 2023-05-20 01:27 | disposition home or self-care (01) ==
PROVIDERS: Emergency Provider Internal Medicine
DX: J10.1 Influenza due to other identified influenza virus with other respiratory manifestations (principal); R05.9 Cough, unspecified; R06.02 Shortness of breath; M79.10 Myalgia, unspecified site; Z11.52 Encounter for screening for COVID-19; Z20.822 Contact with and (suspected) exposure to COVID-19
CPT/HCPCS: 87502; 87635; 87651; 94640; 99284

== ENCOUNTER 2023-09-13 10:40 | Outpatient (AMB) | payer OTHER, SELFPAY ==
--- NOTE | 2023-09-13 10:49 | MHC.OFFVIS ---
Vital Signs 09/13/23 11:03 Height 5 ft 3 in Weight 255 lb 11.779 oz BMI 45.3 BP 110/74 Intake Visit Reasons: IUD Check Allergies Latex, Natural Rubber Allergy (Verified 05/19/23 22:58) Unknown HPI Comments Details: The patient is presenting for follow-up 3 months post Prometrium, taken 200 mg p.o. q.d. day 15-24 cyclically, her menstrual cycles are regular and light. No complaints PFSH Medical History Irregular menstrual cycle Annual visit for general adult medical examination with abnormal findings Leukopenia Total bilirubin, elevated Vitamin D deficiency Asthma Surgical History H/O gastric sleeve Family History Father Diabetes mellitus Essential hypertension Maternal Grandmother Essential hypertension CVA (cerebral vascular accident) Maternal Grandfather Essential hypertension Cardiovascular disease Maternal Uncle Diabetes mellitus Social History Housing: Apartment Patient Tobacco Use Status: Former Tobacco user e-Cigarette/Vaping Use: Never Used service: No Current occupational status: employed Cognitive needs: No Hearing needs: No Vision needs: No Female Reproductive History Menstrual Age of Menarche: 12 Review of Systems Const All systems reviewed & are unremarkable except as noted in HPI and below Reports as per HPI and Reports no additional complaints GI Reports no additional complaints Reports no additional complaints Physical Exam Vital Signs: BMI result Body Mass Index 45.3 Assessment & Plan Assessment & Plan (1) Abnormal uterine bleeding: Code(s): N93.9 - Abnormal uterine and vaginal bleeding, unspecified Category: Medical Plan: Prometrium 200 mg p.o. q.d. day 15-24 refilled. Instructions given the patient to call in case of abnormal uterine bleeding . All questions answered, the patient verbalized understanding Medications: Refilled progesterone micronized (Prometrium) Take the pill 1 tablet a day cyclically every month from day 15-24 day 1 being the 1st day of next menstrual cycle 200 mg PO BEDTIME 10 days 30 caps 3RF Coding Level of Care Code Est Pt Level 3 (60178) Diagnoses Abnormal uterine bleeding N93.9
[2023-09-13 11:03] VITALS: BP 110/74; BMI 45.3
== END 2023-09-13 11:25 | disposition home or self-care (01) ==
PROVIDERS: PCP Internal Medicine; Visit Provider Obstetrics & Gynecology
DX: N93.9 Abnormal uterine and vaginal bleeding, unspecified (principal)
CPT/HCPCS: 99213

== ENCOUNTER → 2023-09-13 10:40 | Outpatient (BNVA) | payer OTHER, SELFPAY | PROVIDERS: PCP Internal Medicine; Visit Provider Obstetrics & Gynecology | DX: N93.9 Abnormal uterine and vaginal bleeding, unspecified (principal) | CPT/HCPCS: 99212 ==

== ENCOUNTER 2023-10-25 09:53 | Outpatient (REF) | payer OTHER, SELFPAY | END 2023-10-25 09:54 | disposition home or self-care (01) | LOC: HO.MAMMO 09:53 | PROVIDERS: PCP Internal Medicine; Visit Provider Internal Medicine | DX: Z12.31 Encounter for screening mammogram for malignant neoplasm of breast (principal) | CPT/HCPCS: 77063; 77067 ==

== ENCOUNTER → 2023-10-25 10:00 | Outpatient (BNV) | payer OTHER, SELFPAY | PROVIDERS: PCP Internal Medicine; Visit Provider Radiology Diagnostic Radiology | DX: Z12.31 Encounter for screening mammogram for malignant neoplasm of breast (principal) | CPT/HCPCS: 77063; 77067 ==

== ENCOUNTER 2024-11-16 15:02 | Emergency (ER) | payer OTHER, SELFPAY ==
--- NOTE | ~2024-11-16 | XR_ITS ---
EXAMINATION: XR KNEE, LEFT CLINICAL INFORMATION: pain 3 wks COMPARISON: Right knee 07/08/2016 TECHNIQUE: Four views of the left knee. FINDINGS: The tricompartment joint spaces preserved. No visible acute fracture, dislocation or subluxation seen. There are no loose bodies. No joint effusion. The soft tissues are normal. XR/XR knee LT 4V IMPRESSION: Unremarkable left knee exam. Electronically signed by: Toby Meeks MD 11/16/2024 04:05 PM EDT
[2024-11-16 15:04] VITALS: BP 139/84; PULSE 79; RESP 18; TEMP 36.8; O2SAT 98; BMI 48.1
--- NOTE | 2024-11-16 15:04 | ED_ITS ---
HPI - General Adult General Chief complaint: Extremity Injury, Lower Stated complaint: left knee pain Time Seen by Provider: 11/16/24 16:09 Source: patient and family Mode of arrival: ambulatory Limitations: no limitations History of Present Illness ED Provider: Dr. Jennifer Cooney HPI narrative: 44-year-old female with no significant past medical history presenting with left knee pain that is been ongoing for the last 3 weeks, worsening over the last 7 days or so, particularly with weight-bearing. States she 1st noticed the pain when she was in the shower and twisted awkwardly on her knee. Admits that it initially did not hurt that bad and she was able to ambulate without difficulty however, over the last week or so she has been having more pain. No new injury. No numbness/tingling/weakness of the leg. No posterior knee pain. No calf tenderness. Related Data Previous Rx's ?Medication ?Instructions ?Recorded albuterol sulfate 90 mcg/actuation 2 puff inhalation Q 4-6H PRN 05/20/23 aerosol inhaler shortness of breath or wheez ing #8.5 grams prednisone 20 mg tablet 40 mg (2 x 20 mg) PO DAILY 5 days 05/20/23 #10 tabs progesterone micronized 200 mg 200 mg PO BEDTIME 10 da ys #30 caps 11/03/24 capsule (Prometrium) Allergies Allergy/AdvReac Type Severity Reaction Status Date / Time Latex, Natural Rubber Allergy Unknown Verified 11/16/24 15:07 Review of Systems Review of Systems: As per HPI, full review of systems performed and negative but for the above mentioned pertinent positives and negatives. FOR[facility]LY [facility] Past Medical History Medical History Heartburn Irregular menstrual cycle Annual visit for general adult medical examination with abnormal findings Leukopenia Total bilirubin, elevated Vitamin D deficiency Asthma Surgical History H/O gastric sleeve Family History Family History Father Diabetes mellitus Essential hypertension Maternal Grandmother Essential hypertension CVA (cerebral vascular accident) Maternal Grandfather Essential hypertension Cardiovascular disease Maternal Uncle Diabetes mellitus Social History Social History Housing: Apartment Patient Tobacco Use Status: Former Tobacco user e-Cigarette/Vaping Use: Never Used Advance Directives: No Advance Directives Information Provided: Yes Do you have a plan to hurt others: No Plan service: No Current occupational status: employed Cognitive needs: No Hearing needs: No Vision needs: No Physical Exam ED Exam Exam: GENERAL: Well-Appearing, conversant, no acute distress. SKIN: Normal skin color for ethnicity, no rashes noted. HEENT: Normocephalic, atraumatic, no stridor, EOMI. CHEST: Heart regular rate and rhythm, no murmurs, symmetric chest rise and fall. PULMONARY: Clear to auscultation bilaterally, no labored breathing, no wheezes/rhales/rhonchi. ABDOMINAL: Soft, nondistended, nontender, positive bowel sounds in all quadrants. : Deferred. MUSCULOSKELETAL: Normal tone, full range of motion, no deformities, no peripheral edema, no joint effusion of the left knee, no laxity to the joint, tenderness with varus strain in the joint, neurovascularly intact distally. NEURO: Alert and oriented x3, CN II through XII intact, equal strength and sensation bilateralupper and lower extremities, no focal neurologic deficits. PSYCHIATRIC: Normal affect, fluid speech, good eye contact and appropriate demeanor. Vital Signs: Vital Signs - 24 hr 11/16/24 15:04 11/16/24 16:07 Temperature 98.3 F 97.6 F Pulse Rate 79 71 Respiratory Rate 18 18 Blood Pressure 139/84 130/76 Pulse Oximetry 98 95 Oxygen Delivery Method Room Air Room Air BMI result Body Mass Index 48.1 Course Course Course Narrative: This is a rapid medical exam performed by Dakota Du NP: Additional HPI, ROS, PE not included below will be deferred to primary provider. Patient is a 44y/o F with history of asthma, gastric sleeve, obesity presenting with complaint of 3 weeks of left knee pain which began while showering. Denies fall. Plan: xray Medical Decision Making Medical Decision Making MDM Narrative: Patient presents today with musculoskeletal injury. Differential diagnosis includes fracture, soft tissue contusion, ligamentous injury, tendon injury, infection, laceration, among others. Patient is neurovascularly intact upon arrival to the emergency department. Based on physical exam, appropriate imaging was ordered. X-ray does not show evidence of injury. Patient is ambulatory in the emergency department with the assistance of a knee brace and crutches. Suspect ligamentous strain/partial ligamentous tear. Discussed this with her at length. Discussed follow-up with Orthopedic surgery as an outpatient. Encouraged use of NSAIDs for pain. Discharged home in stable and improved condition. Differential Diagnosis Differential Diagnoses: The differential diagnosis associated with the presentation includes (As above) Admission/Observation Consideration of admission/observation: Escalation of care including admission/observation considered Radiology Impression Discussion of test interpretation with radiology: I have reviewed the radiologist's reading. Radiologist Impression: XR KNEE, LEFT CLINICAL INFORMATION: pain 3 wks COMPARISON: Right knee 07/08/2016 TECHNIQUE: Four views of the left knee. FINDINGS: The tricompartment joint spaces preserved. No visible acute fracture, dislocation or subluxation seen. There are no loose bodies. No joint effusion. The soft tissues are normal. XR/XR knee LT 4V IMPRESSION: Unremarkable left knee exam. Electronically signed by: Toby Meeks MD 11/16/2024 04:05 PM EDT Independent Historian Clinical information obtained from an independent historian. History obtained from or confirmed by: Spouse Prescription Management I considered prescription management with: Pain Medication Chronic Conditions Patient?s care impacted by: Other (obesity) Discharge Plan Discharge Clinical Impression: Left knee sprain Patient Disposition: Home, Self-Care Instructions: Knee Sprain (ED), Crutch Instructions (ED) Additional Instructions: Wear your knee brace while you are up walking around for support. You may also use crutches if you have a hard time getting around with a knee brace on. Return to the emergency department with any new or worsening symptoms including: Worsening pain in your knee despite ibuprofen or acetaminophen, fevers greater than 100?, redness that tracks away from your knee, loss of control of your leg, any new symptom that concerns you. Call 911 with any medical emergency. Prescriptions: No Action progesterone micronized [Prometrium] 200 mg capsule 200 mg PO BEDTIME 10 Days Qty: 30 3RF Rx Instructions: Take the pill 1 tablet a day cyclically every month from day 15-24 day 1 being the 1st day of next menstrual cycle prednisone 20 mg tablet 40 mg PO DAILY 5 Days Qty: 10 0RF albuterol sulfate 90 mcg/actuation HFA aerosol inhaler 2 puff inhalation Q4-6H PRN (Reason: shortness of breath or wheezing) Qty: 8.5 0RF [place] [facility] [place]Provider Group, Orthopedics] Clinical Impression: Left knee sprain Print Language: Chinese
[2024-11-16 16:07] VITALS: BP 130/76; PULSE 71; RESP 18; TEMP 36.4; O2SAT 95
--- NOTE | 2024-11-16 17:38 | PC.NURSE ---
Knee immobilizer applied to L knee and crutch-walking return demo by pt successful
[2024-11-16 17:39] VITALS: BP 130/76; PULSE 71; RESP 18; TEMP 36.4; O2SAT 95
== END 2024-11-16 17:40 | disposition home or self-care (01) ==
PROVIDERS: Emergency Provider Emergency Medicine; PCP Internal Medicine
DX: S83.92XA Sprain of unspecified site of left knee, initial encounter (principal); M25.562 Pain in left knee; E66.89 Other obesity not elsewhere classified; Y99.8 Other external cause status; Z68.42 Body mass index [BMI] 45.0-49.9, adult; X50.1XXA Overexertion from prolonged static or awkward postures, initial encounter; Y93.89 Activity, other specified; Y92.091 Bathroom in other non-institutional residence as the place of occurrence of the external cause
CPT/HCPCS: 73564; 99283

== ENCOUNTER → 2024-11-16 15:05 | Outpatient (BNV) | payer OTHER, SELFPAY | PROVIDERS: Emergency Provider Emergency Medicine; PCP Internal Medicine; Visit Provider Radiology Diagnostic Radiology | DX: M25.562 Pain in left knee (principal) | CPT/HCPCS: 73564 ==

== ENCOUNTER 2024-11-28 13:10 | Outpatient (AMB) | payer OTHER, SELFPAY ==
--- NOTE | 2024-11-28 13:15 | A.OFFPC_ITS ---
Vital Signs 11/28/24 13:16 Height 5 ft 4 in Weight 282 lb BMI 48.4 BP 118/80 Blood Pressure Location Rt radial Position Sitting Respiration 16 Pulse 84 Pulse Source Pulse Oximeter Temp 98.0 F Temp Source Oral Pulse Oximetry (%) 98 Oxygen Delivery Method Room Air Intake Visit Reasons: PE resc. 09/25 Intake Note: Pt is here today for her PE: last mammogram 10/25/23, papsmear 10/27/22 Allergies Latex, Natural Rubber Allergy (Verified 11/28/24 13:32) Unknown Medication List - Last Reconciled 11/28/24 by Dorinda Beauchamp MD albuterol sulfate 90 mcg/actuation 2 puffs inhalation Q4-6H PRN progesterone micronized (Prometrium) 200 mg PO BEDTIME 10 days Tobacco use date assessed: 11/28/24 Dental Screening Dental Screen Date: 11/28/24 Did you have a dental visit in the last 12 months?: Yes Did you have a dental problem in the last 6 months where you did not have access to dental care?: Yes Was dental information given to patient?: Patient has dentist HPI PE resc. 09/25 HPI Details 44-year-old lady here today for her phys ical exam. Has history of abnormal uterine bleeding, currently seen by Dr. Downing who has her on micronized progesterone 200 mg daily for 10 days doing a monthly cycle basis to regulate her period, which has been helping. Her last cervical cancer screening was done in 2022 with benign findings Last mammogram was done in September 2023, Due for colon cancer screening now [facility] Medical History Heartburn Irregular menstrual cycle Annual visit for general adult medical examination with abnormal findings Leukopenia Total bilirubin, elevated Vitamin D deficiency Asthma Surgical History H/O gastric sleeve Family History Father Diabetes mellitus Essential hypertension Maternal Grandmother Essential hypertension CVA (cerebral vascular accident) Maternal Grandfather Essential hypertension Cardiovascular disease Maternal Uncle Diabetes mellitus Social History Housing: Apartment Patient Tobacco Use Status: Former Tobacco user e-Cigarette/Vaping Use: Never Used service: No Current occupational status: unemployed Cognitive needs: No Hearing needs: No Vision needs: No Female Reproductive History Menstrual Age of Menarche: 12 Questionnaire PHQ-9 Over the last 2 weeks, how often have you been bothered by any of the following problems? 1. Little interest or pleasure in doing things: not at all 2. Feeling down, depressed, or hopeless: not at all 3. Trouble falling or staying asleep, or sleeping too much: several days 4. Feeling tired or having little energy: several days 5. Poor appetite or overeating: not at all 6. Feeling bad about yourself - or that you are a failure or have let yourself or your family down: not at all 7. Trouble concentrating on things, such as reading the newspaper or watching television: not at all 8. Moving or speaking so slowly that other people could have noticed. Or the opposite - being so fidgety or restless that you have been moving around a lot more than usual: not at all 9. Thoughts that you would be better off or of hurting yourself in some way: not at all Total score: 2 Depression Screening Interpretation: Negative Depression Screening Done: Yes 32380 - PHQ-9 Billing: Yes Source: Developed by Drs. Antoni Kim, Chelly Harmon, Armond Morales and colleagues, with an educational loyda from [employer]. Thrive Questionnaire Date Thrive assessed: 11/21/24 I am a: Patient What is your living situation today?: I have a steady place to live Within the past 12 months, did the food you bought not last and you didn't have the money to get more?: Sometimes True Within the past 12 months, did you worry whether your food would run out before you got money to buy more?: Sometimes True Do you have trouble paying for medicines?: No Do you have trouble getting transportation to medical appointments?: No Do you have trouble paying your heating and electricity bill?: I choose not to answer this question Do you have trouble taking care of your child, family member or friend?: No Do you have trouble with day-to-day activities such as bathing, preparing meals, shopping, managing finances, etc.?: No Are you currently unemployed and looking for a job?: Yes Are you interested in more education?: Yes Please select the resources that you would like help with: Housing/Penitentiary, Food, Paying for medicine, Utilities, Job search/training and Education Currently or been in a relationship where the following occur: No concerns reported THRIVE Score: 2 AUDIT C Alcohol Use Questionnaire (AUDIT-C) 1. How often do you have a drink containing alcohol?: Monthly or less 2. How many drinks containing alcohol do you have on a typical day when you are drinking?: 1 or 2 3. How often do you have six or more drinks on one occasion?: Less than monthly Total Score: 2 Score Reviewed/Action Taken: Yes MIKE-7 AMB Questionnaire MIKE-7 Date MIKE - 7 assessed: 11/28/24 Feeling nervous, anxious, or on edge: 0 = Not at all Not being able to stop or control worryin = Not at all Worrying too much about different things: 0 = Not at all Trouble relaxin = Not at all Being so restless that it is hard to sit still: 0 = Not at all Becoming easily annoyed or irritable: 0 = Not at all Feeling afraid as if something awful might happen: 0 = Not at all Total MIKE-7 score (0-4 normal; 5-9 mild; 10-14 moderate; 15-21 severe): 0 Source: Developed by Drs. Antoni Kim, Chelly Harmon, Armond Morales and colleagues, with an educational loyda from [employer]. MIKE-7 Assessment Billing MIKE-7 Assessment Tool: MIKE-7 Assessment 46242 ACT Questionnaire In the past 4 weeks, how much of the time did your asthma keep you from getting as much done at work, school or at home?: None of the time During the past 4 weeks, how often have you had shortness of breath?: Not at all During the past 4 weeks, how often did your asthma symptoms wake you up at night or earlier than usual in the morning?: Not at all During the past 4 weeks, how often have you had to use your rescue inhaler or nebulizer medication?: Not at all How would you rate your asthma control during the past 4 weeks?: Completely controlled ACT Interpretation: Negative Score: 25 Review of Systems Const Denies body aches, Denies fatigue, Denies headache(s) and Denies weakness Eyes Denies change in vision ENT Denies dizziness, Denies headache(s) and Denies nasal congestion Card Denies chest pain, Denies lightheadedness, Denies palpitations and Denies dyspnea Resp Denies chest congestion, Denies cough, Denies dyspnea and Denies wheezing GI Denies abdominal pain, Denies change in bowel habits, Reports heartburn (Recurrent), Denies nausea and Denies vomiting Reports as per HPI, Denies hematuria, Denies urinary frequency, Denies dysuria and Denies urinary urgency Musc Reports no additional complaints Skin/Breast Denies breast pain, Denies breast mass, Denies lesions and Denies rash Neuro Denies dizziness, Denies headache(s) and Denies weakness Psych Reports no additional complaints Endo Denies fatigue, Denies polydipsia, Denies polyuria and Denies palpitations Eric/Lymph Denies easy bruising Aller/Immun Denies seasonal rhinorrhea and Denies wheezing Physical exam (Primary Care) Vital Signs: Last Vital Signs Temp 98.0 F 11/28/24 13:16 Pulse 84 11/28/24 13:16 Resp 16 11/28/24 13:16 BP 118/80 11/28/24 13:16 Pulse Ox 98 11/28/24 13:16 Oxygen Delivery Method Room Air 11/28/24 13:16 BMI result Body Mass Index 48.4 Tobacco/Smoking Status: Tobacco use Status Tobacco use date assessed 11/28/24 11/28/24 13:27 Patient Tobacco Use Status Former Tobacco user 11/28/24 13:18 e-Cigarette/Vaping Use Never Used 11/28/24 13:18 PHQ-9: PHQ-9 Score PHQ-9: Total score 2 11/28/24 13:36 Depression Screening Interpretation: Negative Thrive Assessment: Date of Thrive Assessment Date Thrive assessed 11/21/24 11/28/24 13:18 Currently or been in a relationship where the following occur: No concerns reported Advance Care Planning discussion: Completed/Scanned Date of discussion: 11/28/24 Who was present: Patient Forms completed: Health Care Proxy Time spent: 16-45 minutes Actual minutes spent: 3 Const General: no acute distress and alert Orientation/consciousness: patient oriented x3 HENMT Head: Yes normocephalic Ears: external ears normal, TM's normal bilaterally and EAC's normal General nose exam: Normal external nose present Face and sinus: Yes face symmetric Mouth: Normal oral and palatal mucosa present, oropharynx normal and moist mu cous membranes Eyes General: appearance normal, both eyes and all related structures Neck Neck: Yes full ROM, Yes no lymphadenopathy and Yes supple Thyroid: Thyroid normal Chest Breast/axilla palpation: normal palpation of the breasts Resp Effort & Inspection: normal respiratory effort and able to speak in complete sentences Auscultation: clear to auscultation bilaterally Cardio Rate: regular rate Rhythm: regular rhythm Heart sounds: S1 normal heart sound present and S2 normal heart sound present GI Palpation (GI): Soft to palpation, nontender, no guarding and no masses Auscultation: normal bowel sounds General: Yes no CVA tenderness Back/Spine/Pelvis Back: no CVA tenderness and No back tenderness Skin General skin exam: no rashes or lesions noted Neuro General: patient oriented x3, gait normal, moves all extremities, Normal light touch and pain sensation, no focal motor deficits and CN's II-XI intact bilaterally Cognition (Neuro): normal cognition Gait exam (Neuro): Normal gait present Motor exam (neuro): 5/5 motor strength present throughout Extrem General: Yes normal to inspection, Yes full ROM, Yes no joint enlargement, Yes no pedal edema and Yes normal gait Psych Appearance: grossly normal and well kempt Mental Status: mental status grossly normal Speech and movement: Normal speech and movement present Affect: normal affect Coding Level of Care Code Est Pt Prev Care 40-64y(75580) Diagnoses Annual visit for general adult medical examination with abnormal findings Z00.01 Encounter for screening for malignant neoplasm of colon Z12.11 Mild intermittent asthma without complication J45.20 Asthma severity: mild Asthma persistence: intermittent Asthma complication type: uncomplicated Vitamin D deficiency E55.9 Total bilirubin, elevated R17 Obesity, morbid, BMI 40.0-49.9 E66.01 Abnormal uterine bleeding N93.9 Sprain of left knee, unspecified ligament, subsequent encounter S83.92XD Encounter type: subsequent encounter Involved ligament of knee: unspecified ligament Advance directive discussed with patient Z71.89 Additional Codes Asthma Control Questionnaire - ACT Interpretation: Negative ([id number]) MIKE-7 Assessment Billing - MIKE-7 Assessment Tool: MIKE-7 Assessment 98436 ([id number]) PHQ-9 - 57677 - PHQ-9 Billing: Yes ([id number]) Vital Signs *Quality* - Advance Care Planning discussion: Completed/Scanned ([id number]) Vital Signs *Quality* - Time spent: 16-45 minutes ([id number]) Assessment & Plan Assessment & Plan (1) Annual visit for general adult medical examination with abnormal findings: Code(s): Z00.01 - Encounter for general adult medical examination with abnormal findings Category: Medical Plan: Will check appropriate labs. Recommended dental visit every 6 months and regular eye exams, at least every 2 years. Take adequate calcium in diet and vitamin-D 3 at 2000 IU per cap once a day, in addition to weight-bearing exercises to help maintain good muscle tone and weight control. Instructed to do self-breast exam, and recommended to get yearly mammogram, patient [facility]. Referred to [facility] to get her initial colon cancer screening. Declined recommendation to get flu vaccine or pneumonia vaccine., does not want to get a COVID booster (2) Encounter for screening for malignant neoplasm of colon: Code(s): Z12.11 - Encounter for screening for malignant neoplasm of colon Plan: Referred to GI Clinic for her initial colon cancer screening. (3) Asthma: Code(s): J45.909 - Unspecified asthma, uncomplicated Category: Medical Qualifiers: Asthma severity: mild Asthma persistence: intermittent Asthma complication type: uncomplicated Qualified Code(s): J45.20 - Mild intermittent asthma, uncomplicated Plan: Uses albuterol inhaler as needed, which occurs infrequently. Reminded to get her flu vaccine and pneumonia vaccine but patient does not want to get any vaccines at present time (4) Vitamin D deficiency: Code(s): E55.9 - Vitamin D deficiency, unspecified Category: Medical Plan: Ordered a repeat vitamin-D level (5) Total bilirubin, elevated: Code(s): R17 - Unspecified jaundice Category: Medical Plan: Ordered comprehensive panel, patient denies any abdominal pain, no episodes of jaundice, or abdominal pain (6) Obesity, morbid, BMI 40.0-49.9: Code(s): E66.01 - Morbid (severe) obesity due to excess calories Category: Medical Plan: Your BMI is above the ideal range. Already had gastric sleeve surgery Discussed need to increase activity and weight reduction. Recommended focusing on improving health instead of dieting. Mediterranean diet is a healthy diet that helps, limit food high in fat, sugar, and calories. Eat slowly, pay attention to portion sizes, plan your meals ahead of time, start regular physical activity, at least 150 minutes of moderate intensity exercise, or 90 minutes per week of vigorous exercise. (7) Abnormal uterine bleeding: Code(s): N93.9 - Abnormal uterine and vaginal bleeding, unspecified Category: Medical Plan: Followed by Dr. Downing, currently on micronized progesterone, but has been taking it daily instead of taking it for 10 days, cyclically every month, it to be started on 1st day of her. (8) Sprain of left knee: Code(s): S83.92XA - Sprain of unspecified site of left knee, initial encounter Qualifiers: Encounter type: subsequent encounter Involved ligament of knee: unspecified ligament Qualified Code(s): S83.92XD - Sprain of unspecified site of left knee, subsequent encounter Plan: Has been applying Advil cream twice a day to affected joint which has been helping temporarily. Referred for physical therapy. Has an appointment for orthopedic consult but not until January 2025 (9) Advance directive discussed with patient: Code(s): Z71.89 - Other specified counseling Plan: Initiated the conversation about Advanced Directives. Advanced Directives help patients prepare for current and future decisions about their medical treatment and place of care. Discussed with patient that it is a process where a patients current condition and prognosis are reviewed, their wishes for information regarding their illness are elicited, and likely medical dilemmas are presented and options discussed. Healthcare proxy form completed today. The form can be amended as needed, reviewed yearly and make changes as needed Orders: Orders Comprehensive [place]. Panel Fast 11/28/24 E55.9 - Vitamin D deficiency, unspecified, E66.01 - Morbid (severe) obesity due to excess calories, J45.909 - Unspecified asthma, uncomplicated, N93.9 - Abnormal uterine and vaginal b leeding, unspecified, R17 - Unspecified jaundice, Z00.01 - Encounter for general adult medical examination with abnormal findings Vitamin D 25-OH Total 11/28/24 E55.9 - Vitamin D deficiency, unspecified, E66.01 - Morbid (severe) obesity due to excess calories, J45.909 - Unspecified asthma, uncomplicated, N93.9 - Abnormal uterine and vaginal bleeding, unspecified, R17 - Unspecified jaundice, Z00.01 - Encounter for general adult medical examination with abnormal findings Lipid Panel 11/28/24 E55.9 - Vitamin D deficiency, unspecified, E66.01 - Morbid (severe) obesity due to excess calories, J45.909 - Unspecified asthma, uncomplicated, N93.9 - Abnormal uterine and vaginal bleeding, unspecified, R17 - Unspecified jaundice, Z00.01 - Encounter for general adult medical examination with abnormal findings PT Evaluation and Treatment 11/28/24 S83.92XA - Sprain of unspecified site of left knee, initial encounter Referrals Gastroenterology Referral Z12.11 - Encounter for screening for malignant neoplasm of colon
[2024-11-28 13:16] VITALS: BP 118/80; PULSE 84; RESP 16; TEMP 36.7; O2SAT 98; BMI 48.4
--- OUTSIDE RECORDS SUMMARY | 2024-11-28 14:29 | XMS_ITS | Clinical Summary ---
Author Organization [facility] Address [address] [place] [address] Care Team Providers Care Crm Architect Name Role Phone Unavailable Primary Care Provider Unavailabl e Source Comments PLEASE NOTE, if this patient is a minor, it may be UNLAWFUL to discuss sensitive information that is contained in these records (such as FAMILY PLANNING, MENTAL HEALTH or SUBSTANCE ABUSE) with the minor patient's parent or other person without the patient's specific authorization.[facility] Allergies No known active allergies Medications ibuprofen 800 mg tabletIndicatio ns:Tooth pain Take 1 Tablet by mouth 3 (three) times daily as needed for pain 30 Tablet 10/08/2020 Active clindamycin HCL (CLEOCIN) 300 mg capsuleIndicati ons:Tooth infection Take 1 Capsule by mouth 3 (three) times daily 21 Capsule 10/08/2020 Active ibuprofen 800 mg tabletIndicatio ns:Tooth pain Take 1 Tablet by mouth 3 (three) times daily as needed for pain 30 Tablet 10/23/2020 Active ibuprofen 800 mg tabletIndicatio ns:Tooth pain Take 1 Tablet by mouth 3 (three) times daily as needed for pain 30 Tablet 10/23/2020 Active amoxicillin (AMOXIL) 500 mg capsuleIndicati ons:Tooth infection Take 1 Capsule by mouth 3 (three) times daily 21 Capsule 03/02/2022 Active ibuprofen 800 mg tabletIndicatio ns:Toothache Take 1 Tablet by mouth 3 (three) times daily as needed for pain 30 Tablet 03/02/2022 Active Active Problems No known active problems Encounters Date Type Department Care Team Description 10/23/2024 1:00 PM EDT Office Visit [facility] [address] [place] [address] María Castrejon, ZENA from Last 3 Months Social History Tobacco Use Types Packs/Day Years Used Date Smoking Tobacco: Never Passive Smoke Exposure: Never Smokeless Tobacco: Never Tobacco Cessation:Counseling Given: No Social Connections Answer Date Recorded Connectedness 0 12/09/2023 Financial Resource Strain Answer Date R ecorded Financial Resource Strain 0 2021 Stress Answer Date Recorded Stress 0 10/09/2021 Physical Activity Answer Date Recorded Physical Activity 0 10/09/2021 Food Insecurity Answer Date Recorded Food 0 12/23/2023 Transportation Needs Answer Date Record ed Transportation 0 10/09/2021 Housing Stability Answer Date Recorded Housing 0 10/09/2021 Safety and Environment Answer Date Arnulfo rded Safety 0 10/09/2021 Utilities Answer Date Recorded Utilities 0 10/09/2021 Employment Answer Date Recorded Stress 0 12/09/2023 Comments Unknown Sex and Gender Information Value Date Recorded Sex Assigned at Not on file Legal Sex Female 11:25 AM PST Gender Identity Not on file Sexual Orientation Not on file Last Filed Vital Signs Vital Sign Reading Time Taken Comments Blood Pressure 143/90 10/23/2024 1:11 PM EDT Pulse 81 10/23/2024 1:11 PM EDT Temperature - - Respiratory Rate - - Oxygen Saturation - - Inhaled Oxygen Concentration - - Weight - - Height - - Body Mass Index - - Plan of Treatment Upcoming Encounters Date Type Department Care Team (Late st Contact Info) Description 12/01/2024 1:00 PM EDT Office Visit [facility] [address] [place] [address] Tammy Mchugh, [facility] [address] [place] [address] Health Maintenance Due Date Last Done Comments Anxiety Screening 1979 Diabetes Screening 1979 HPV Screening 1979 Hepatitis C Screening 1979 Lipid Screening 1979 Pap + HPV 1979 Tobacco Screening 1979 HIV Screening 09/26/1994 Relationship Safety Screening/Counseling 09/26/1994 Imm-DTaP/Tdap/Td (1 - Tdap) 09/26/1998 Imm-Hepatitis B (1 of 3 - 19 + 3-dose series) 09/26/1998 Cervical Cancer Screening 09/26/2000 Pap Smear 09/26/2000 Breast Cancer Screening (Mammogram) 2019 Alcohol and Drug Screen 03/29/2024 Depression Annual Screen 03/29/2024 CT Colonography 09/26/2024 Colonoscopy 09/26/2024 Colorectal Cancer Screening 09/26/2024 FIT/gFOBT 09/26/2024 Fecal DNA 09/26/2024 Flexible Sigmoidoscopy 09/26/2024 [id number] ( season) 2024 Imm-Influenza (#1) 2024 Dental BW 03/16/2025 03/14/2024, 2 10/2023, 02/16/2023, Additional history exists Dental Examination 03/16/2025 03/14/2024, 0 08/24/2023, 02/16/2023, Additional history exists Dental Perio Charting 03/16/2025 03/14/2024 , 02/16/2023, 04/16/2022 Dental Prophy 03/16/2025 03/14/2024, 052 10/2023, 02/16/2023, Additional history exists Hypertension Screening (#1) 10/23/2025 Dental FMX/Pano 10/11/2026 10/09/2021 Cervical Ablation/Cold-Knife Conization Discontinued Cervical Cryotherapy Discontinued Colposcopy Discontinued Endometrial Biopsy Discontinued Excision/Leep Discontinued HPV Genotyping Discontinued Vaginal Pap Discontinued Vulvoscopy Discontinued Procedures Procedure Name Priority Date/Time Associated Diagnosis Comments CASE PRESENTATION SUBS DTL & EXTENSIVE TX PLN Routine 10/23/2024 1:00 PM EDT Irreversible pulpitis 29 ENDODONTIC THERAPY PREMOLAR TOOTH Routine 10/23/2024 1:00 PM EDT Irreversible pulpitis COMP PERIODONTAL EVALUATION - NEW/EST PATIENT Routine 03/14/2024 4:00 PM EST Caries Caries of enamel (incipient) Dental caries on smooth surface penetrating into dentin Defective dental advent BITEWINGS - FOUR RADIOGRAPHIC IMAGES Routine 03/14/2024 4:00 PM EST Caries of enamel (incipient) Defective dental advent Caries Dental caries on smooth surface penetrating into dentin PROPHYLAXIS - ADULT Routine 03/14/2024 4 :00 PM EST Caries Caries of enamel (incipient) Dental caries on smooth surface penetrating into dentin Defective dental advent PERIODIC ORAL EVALUATION ESTABLISHED PATIENT Routine 03/14/2024 4:00 PM EST Caries Caries of enamel (incipient) Dental caries on smooth surface penetrating into dentin Defective dental advent Full INTRAORAL - COMP SERIES OF RADIOGRAPHIC IMAGES Routine 10/09/2021 2:20 PM EDT Gingivitis, chronic, plaque induced from Last 3 Months or Most Recently Relevant to Health Maintenance Insurance [place] [facility], [facility] [place] [address]
== END 2024-11-28 13:59 | disposition home or self-care (01) ==
LOC: HO.HMCC 13:11
PROVIDERS: PCP Internal Medicine; Visit Provider Internal Medicine
DX: Z00.00 Encounter for general adult medical examination without abnormal findings (principal); E55.9 Vitamin D deficiency, unspecified; E66.01 Morbid (severe) obesity due to excess calories; Z68.42 Body mass index [BMI] 45.0-49.9, adult; Z12.11 Encounter for screening for malignant neoplasm of colon; J45.20 Mild intermittent asthma, uncomplicated; R17 Unspecified jaundice; N93.9 Abnormal uterine and vaginal bleeding, unspecified; S83.92XD Sprain of unspecified site of left knee, subsequent encounter; Z71.89 Other specified counseling

== ENCOUNTER → 2024-11-28 13:10 | Outpatient (BNVA) | payer OTHER, SELFPAY | PROVIDERS: PCP Internal Medicine; Visit Provider Internal Medicine | DX: Z00.01 Encounter for general adult medical examination with abnormal findings (principal); J45.20 Mild intermittent asthma, uncomplicated; E55.9 Vitamin D deficiency, unspecified; R17 Unspecified jaundice; E66.01 Morbid (severe) obesity due to excess calories; N93.9 Abnormal uterine and vaginal bleeding, unspecified; S83.92XD Sprain of unspecified site of left knee, subsequent encounter; X58.XXXD Exposure to other specified factors, subsequent encounter; Z68.42 Body mass index [BMI] 45.0-49.9, adult; Z71.89 Other specified counseling | CPT/HCPCS: 96127; 96160; 99396 ==

== ENCOUNTER 2024-12-06 11:41 | Outpatient (REF) | payer OTHER, SELFPAY ==
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
[2024-12-06 14:44] LABS: Alanine Aminotransferase 15 U/L (0-31); Albumin Level 4.4 g/dL (3.5-5.0); Alkaline Phosphatase 108 U/L (39-117); Anion Gap 11 (12-20); Aspartate Amino Transferase 21 U/L (5-31); Blood Urea Nitrogen 12 mg/dL (9-16); Calcium 9.1 mg/dL (8.4-10.2); Carbon Dioxide 24 mmol/L (22-29); Chloride 108 mmol/L (96-108); Cholesterol 156 mg/dL (<200); Estimated Glomerular Filt Rate > 60; HDL Cholesterol 48 mg/dL (>40); Potassium 3.9 mmol/L (3.3-5.1); Sodium 139 mmol/L (135-145); Total Protein 7.6 g/dL (6.5-8.0); Triglycerides 51 mg/dL (<150)
--- OUTSIDE RECORDS SUMMARY | 2024-12-06 14:54 | XMS_ITS | Clinical Summary ---
Author Organization [facility] Address [address] [place] [address] Care Team Providers Care Compounding Scaler Name Role Phone Unavailable Primary Care Provider [...] Encounters Date Type Department Care Team Description 12/01/2024 1:00 PM EDT Office Visit [facility] [address] [place] [phone] Tammy Mchugh DDS 10/23/2024 1:00 PM EDT Office Visit [facility] [address] [place] [phone] María Castrejon DMD from Last 3 Months Social History Tobacco [...] Description 12/27/2024 3:20 PM EDT Office Visit [facility] [address] [place] [phone] Tammy Mchugh, [facility] [address] [place] [address] Health Maintenance Due Date Last Done Comments Anxiety Screening 1979 Diabetes Screening 1979 HPV Screening 1979 Hepatitis C Screening 1979 Lipid Screening 1979 Pap + HPV 1979 HIV Screening 09/26/1994 Relationship Safety Screening/Counseling 09/26/1994 Imm-DTaP/Tdap/Td (1 - Tdap) 09/26/1998 Imm-Hepatitis B (1 of 3 - 19 + 3-dose series) 09/26/1998 Cervical Cancer Screening 09/26/2000 Pap Smear 09/26/2000 Breast Cancer Screening (Mammogram) 2019 Alcohol and Drug Screen 03/29/2024 Depression Annual Screen 03/29/2024 CT Colonography 09/26/2024 Colonoscopy 09/26/2024 Colorectal Cancer Screening 09/26/2024 FIT/gFOBT 09/26/2024 Fecal DNA 09/26/2024 Flexible Sigmoidoscopy 09/26/2024 [id number] () 11/27/2024 Imm-Influenza (#1) 2024 Dental BW 03/16/2025 03/14/2024, 07/28, 02/16/2023, Additional history exists Dental Examination 03/16/2025 03/14/2024, 0 08/24/2023, 02/16/2023, Additional history exists Dental Perio Charting 03/16/2025 03/14/2024 , 02/16/2023, 04/16/2022 Dental Prophy 03/16/2025 03/14/2024, 07/28, 02/16/2023, Additional history exists Hypertension Screening (#1) 12/01/2025 Tobacco Screening 12/04/2025 12/04/2024 Dental FMX/Pano 10/11/2026 10/09/2021 Cervical Ablation/Cold-Knife Conization Discontinued Cervical Cryotherapy Discontinued Colposcopy Discontinued Endometrial Biopsy Discontinued Excision/Leep Discontinued HPV Genotyping Discontinued Vaginal Pap Discontinued Vulvoscopy Discontinued Procedures Procedure Name Priority Date/Time Associated Diagnosis Comments 29 CORE BUILDUP INCLUDING ANY PINS WHEN REQUIRED Routine 12/01/2024 1:00 PM EDT Full coverage crown needed for root canal-treated tooth CASE PRESENTATION SUBS DTL & EXTENSIVE TX PLN Routine 12/01/2024 1:00 PM EDT Full coverage crown needed for root canal-treated tooth 29 CROWN PREP Routine 12/01/2024 1:00 PM [...] smooth surface penetrating into dentin Defective dental hindu BITEWINGS - FOUR RADIOGRAPHIC IMAGES Routine 03/14/2024 4:00 PM EST Caries of enamel (incipient) Defective dental hindu Caries Dental caries on smooth surface penetrating into dentin PROPHYLAXIS - ADULT Routine 03/14/2024 4 :00 PM EST Caries Caries of enamel (incipient) Dental caries on smooth surface penetrating into dentin Defective dental hindu PERIODIC ORAL EVALUATION ESTABLISHED PATIENT Routine 03/14/2024 4:00 PM EST Caries Caries of enamel (incipient) Dental caries on smooth surface penetrating into dentin Defective dental hindu Full INTRAORAL - COMP SERIES OF RADIOGRAPHIC IMAGES Routine 10/09/2021 2:20 PM EDT Gingivitis, chronic, plaque induced from Last 3 Months or Most Recently Relevant to Health Maintenance Insurance [place] MEDICAID DENTAL [facility]
== END 2024-12-06 11:42 | disposition home or self-care (01) ==
LOC: HO.HMGCLDS 11:41
PROVIDERS: PCP Internal Medicine; Visit Provider Internal Medicine
DX: Z00.01 Encounter for general adult medical examination with abnormal findings (principal); J45.909 Unspecified asthma, uncomplicated; R17 Unspecified jaundice; N93.9 Abnormal uterine and vaginal bleeding, unspecified; E66.01 Morbid (severe) obesity due to excess calories; E55.9 Vitamin D deficiency, unspecified
CPT/HCPCS: 36415; 80053; 80061; 82306

== ENCOUNTER 2025-02-01 08:29 | Outpatient (REF) | payer OTHER, SELFPAY ==
--- NOTE | ~2025-02-01 | XR_ITS ---
EXAMINATION: XR KNEE, LEFT CLINICAL INFORMATION: M25.569 - Pain in unspecified knee COMPARISON: X-ray 11/16/2024 TECHNIQUE: AP bilateral knees one view. [place] view of the left knee. FINDINGS: Left knee: No visible acute fracture or dislocation of the provided views. On the sunrise view, there is mild lateral patellar tilt and lateral joint space narrowing. No suspicious bony lesions. No abnormal soft tissue calcification. Right knee: No acute findings a single frontal radiograph. Visualized joint spaces are maintained. XR/XR knee LT 2V IMPRESSION: No acute osseous findings Electronically signed by: Mitchell Fabian MD 02/02/2025 08:46 AM EST
== END 2025-02-01 08:30 | disposition home or self-care (01) ==
LOC: HO.HOSX 08:29
PROVIDERS: Visit Provider Physician Assistant
DX: M25.562 Pain in left knee (principal)
CPT/HCPCS: 73560

== ENCOUNTER 2025-02-02 08:27 | Outpatient (AMB) | payer OTHER, SELFPAY ==
--- NOTE | 2025-02-02 08:32 | A.OFFVIS_ITS ---
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 Patient reports ongoing pain for about 3 months. Patient reports that her pain is getting worse with ambulation. She states when she felt her pain for the first time was in the shower and twisted awkwardly. Her pain is through out the whole knee. Patient mentions that her knee gives out randomly. Her pain is worse at night. She has tried Tylenol and ibuprofen with minimal relief. IMPRESSION: Unremarkable left knee exam. 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 Kobe Mcconnell is a 44-year-old female who presents to the office today for evaluation of left knee pain for the past 2-3 months. She reports that she was standing in the shower and twisted her knee. At that time if felt weak and like it was going to give way. Ever since she has had continued discomfort and weakness. She reports pain throughout the knee but is able to pinpoint an area on the medial aspect of the knee closest to the patella. She has tried taking Tylenol and ibuprofen with minimal relief. [facility] Medical History Heartburn Irregular menstrual cycle Annual visit for general adult medical examination with abnormal findings Leukopenia Total bilirubin, elevated Vitamin D deficiency Asthma Surgical History H/O gastric sleeve Family History Father Diabetes mellitus Essential hypertension Maternal Grandmother Essential hypertension CVA (cerebral vascular accident) Maternal Grandfather Essential hypertension Cardiovascular disease Maternal Uncle Diabetes mellitus Social History Housing: Apartment Patient Tobacco Use Status: Former Tobacco user e-Cigarette/Vaping Use: Never Used service: No Current occupational status: unemployed Cognitive needs: No Hearing needs: No Vision needs: No Female Reproductive History Menstrual Age of Menarche: 12 Review of Systems Const All systems reviewed & are unremarkable except as noted in HPI and below Physical Exam Const General: cooperative, healthy appearing and no acute distress Resp Effort & Inspection: normal respiratory effort and able to speak in complete sentences Cardio Rate: regular rate Peripheral pulses: Peripheral pulses 2+ throughout GI Palpation (GI): Soft to palpation Skin Lesions: no lesions Rashes: no rashes Extrem Other: Left knee: Normal to inspection. No ecchymosis, erythema, or joint effusion. Slight tenderness to palpation medial joint line. Full knee extension and flexion. NVI. Psych Appearance: grossly normal Mental Status: mental status grossly normal Attitude: cooperative Office Procedures AMB Joint Injection/Aspiration Joint Injection/Aspiration Primary Site: left knee Prep: site was prepped using aseptic technique, ethochloride spray was applied and injection warnings given Injected: 40 mg of, with 3 mL of, 1% plain lidocaine, 0.25% bupivacaine, in the joint and decadron Approach Used: anterolateral Procedure: The patient tolerated the procedure well, but had some pain with the injection and there was some relief with the local anesthesia Coding 58248 - Large joint Procedure code (CPT) selection complete Assessment & Plan Assessment & Plan (1) Internal derangement of left knee: Code(s): M23.92 - Unspecified internal derangement of left knee Category: Medical Plan Ms. Kobe Mcconnell is a 44-year-old female who presents to the office today for evaluation of left knee pain for the past 2-3 months. She reports that she was standing in the shower and twisted her knee. At that time if felt weak and like it was going to give way. Ever since she has had continued discomfort and weakness. She reports pain throughout the knee but is able to pinpoint an area on the medial aspect of the knee closest to the patella. She has tried taking Tylenol and ibuprofen with minimal relief. The patient was offered a cortisone injection in the left knee. The patient was explained the risks, benefits, and alternatives to receiving this injection. After receiving consent for the injection, the patient had the procedure done while in the office today. The patient tolerated the procedure well with no complications. Additionally, physical therapy was recommended to the patient which she is amenable to attend. An order has been placed while in the office today. Follow-up will be PRN, or sooner if needed. X-rays of the left knee which were obtained while in the office today and were reviewed by me, Noemy Meka PA-C, revealed no acute fracture or dislocation. Orders: Orders XR knee LT 2V Today M25.569 - Pain in unspecified knee Coding Level of Care Code New Pt Level 3 (40330) Diagnoses Internal derangement of left knee M23.92 CPT Codes Coding - 47080 Large joint: 82475 - Large joint ([id number])
--- OUTSIDE RECORDS SUMMARY | 2025-02-02 08:57 | XMS_ITS | Clinical Summary ---
Author Organization [facility] Address [address] [place] [address] Care Team Providers Care Ota Name Role Phone Unavailable Primary Care Provider [...] Encounters Date Type Department Care Team Description 01/20/2025 11:00 AM EDT Office Visit [facility] [address] [place] [phone] Tammy Mchugh DDS 12/27/2024 3:20 PM EDT Office Visit [facility] [address] [place] [phone] Tammy Mchugh DDS 12/01/2024 1:00 PM EDT Office Visit [facility] [id number] [place] [phone] Tammy Mchugh DDS from Last 3 Months Social History Tobacco [...] Sign Reading Time Taken Comments Blood Pressure 139/84 01/20/2025 11:27 AM EDT Pulse 70 01/20/2025 11:27 AM EDT Temperature - - Respiratory Rate - - Oxygen Saturation - - Inhaled Oxygen Concentration - - Weight - - Height - - Body Mass Index - - Plan of Treatment Upcoming Encounters Date Type Department Care Team (Late st Contact Info) Description 02/26/2025 9:40 AM EST Office Visit [address] [phone] Tammy Mchugh DDS [address] [place] [address] Health Maintenance Due Date Last Done Comments Anxiety Screening 1979 Diabetes Screening 1979 HPV Screening (self-collect) 1979 HPV Screening 1979 Hepatitis C Screening 1979 Lipid Screening 1979 Pap + HPV 1979 HIV Screening 09/26/1994 Relationship Safety Screening/Counseling 09/26/1994 Imm-DTaP/Tdap/Td (1 - Tdap) 09/26/1998 Imm-Hepatitis B (1 of 3 - 19 + 3-dose series) 09/26/1998 Cervical Cancer Screening 09/26/2000 Pap Smear 09/26/2000 Imm-HPV (1 - 3-dose SCDM series) 09/26/2006 Breast Cancer Screening (Mammogram) 2019 Alcohol and Drug Screen 03/29/2024 Depression Annual Screen 03/29/2024 CT Colonography 09/26/2024 Colonoscopy 09/26/2024 Colorectal Cancer Screening 09/26/2024 FIT/gFOBT 09/26/2024 Fecal DNA 09/26/2024 Flexible Sigmoidoscopy 09/26/2024 [id number] ( season) 2024 Imm-Influenza (#1) 2024 Dental BW 03/16/2025 03/14/2024, 07/28, 02/16/2023, Additional history exists Dental Examination 03/16/2025 03/14/2024, 0 08/24/2023, 02/16/2023, Additional history exists Dental Perio Charting 03/16/2025 03/14/2024 , 02/16/2023, 04/16/2022 Dental Prophy 03/16/2025 03/14/2024, 07/28, 02/16/2023, Additional history exists Hypertension Screening (#1) 01/20/2026 Tobacco Screening 01/20/2026 01/20/2025 Dental FMX/Pano 10/11/2026 10/09/2021 Cervical Ablation/Cold-Knife Conization Discontinued Cervical Cryotherapy Discontinued Colposcopy Discontinued Excision/Leep Discontinued HPV Genotyping Discontinued Vaginal Pap Discontinued Vulvoscopy Discontinued Procedures Procedure Name Priority Date/Time Associated Diagnosis Comments 2 MO RESIN-BASED COMPOSITE - TWO SURFACES POSTERIOR Routine 01/20/2025 11:00 AM EDT Caries CASE PRESENTATION SUBS DTL & EXTENSIVE TX PLN Routine 01/20/2025 11:00 AM EDT Caries 29 CROWN - PORCELAIN/CERAMIC Routine 12/27/2024 3:20 PM EDT Full coverage crown needed for root canal-treated tooth CASE PRESENTATION SUBS DTL & EXTENSIVE TX PLN Routine 12/27/2024 3:20 PM EDT Full coverage crown needed for [...] coverage crown needed for root canal-treated tooth COMP PERIODONTAL EVALUATION - NEW/EST PATIENT Routine 03/14/2024 4:00 PM EST Caries Caries of enamel (incipient) Dental caries on smooth surface penetrating into dentin Defective dental catholic BITEWINGS - FOUR RADIOGRAPHIC IMAGES Routine 03/14/2024 4:00 PM EST Caries of enamel (incipient) Defective dental catholic Caries Dental caries on smooth surface penetrating into dentin PROPHYLAXIS - ADULT Routine 03/14/2024 4 :00 PM EST Caries Caries of enamel (incipient) Dental caries on smooth surface penetrating into dentin Defective dental catholic PERIODIC ORAL EVALUATION ESTABLISHED PATIENT Routine 03/14/2024 4:00 PM EST Caries Caries of enamel (incipient) Dental caries on smooth surface penetrating into dentin Defective dental catholic Full INTRAORAL - COMP SERIES OF RADIOGRAPHIC IMAGES Routine 10/09/2021 2:20 PM EDT Gingivitis, chronic, plaque induced from Last 3 Months or Most Recently Relevant to Health Maintenance Insurance [place] MEDICAID DENTAL [facility]
== END 2025-02-02 09:17 | disposition home or self-care (01) ==
LOC: HO.HOS 08:28
PROVIDERS: PCP Internal Medicine; Visit Provider Physician Assistant
DX: M23.92 Unspecified internal derangement of left knee (principal)
CPT/HCPCS: 20610; 99203

== ENCOUNTER → 2025-02-02 08:27 | Outpatient (BNVA) | payer OTHER, SELFPAY | PROVIDERS: PCP Internal Medicine; Visit Provider Physician Assistant | DX: M23.92 Unspecified internal derangement of left knee (principal) | CPT/HCPCS: 20610; 99202; J0665; J1100; J2003 ==

== ENCOUNTER 2025-03-14 09:15 | Outpatient (REF) | payer OTHER, SELFPAY | END 2025-03-14 09:16 | disposition home or self-care (01) | LOC: HO.HMGCLDS 09:15 | PROVIDERS: Internal Medicine; PCP Internal Medicine; Visit Provider Internal Medicine | DX: Z11.1 Encounter for screening for respiratory tuberculosis (principal) | CPT/HCPCS: 36415; 86481 ==